=== PATIENT | male | born 1945 | race Caucasian/White ===

== ENCOUNTER → 2018-06-16 06:29 | Outpatient (CLI) | payer MEDICARE, OTHER, SELFPAY ==
--- NOTE | 2018-06-16 06:34 | ECHOD_ITS ---
Reason For Study: CAD/ASHD Procedure This was a 2D Doppler, Color Flow transthoracic echocardiogram. Exam performed in department. Left Ventricle Normal LV size. Left ventricular systolic function is normal. The estimated ejection fraction is 60 %. Transmitral diastolic flow velocities suggest mild (stage 1) diastolic dysfunction (reversed pattern). No regional wall motion abnormalities noted. Right Ventricle Normal RV size. Normal systolic function. Atria The left atrium is moderately enlarged. Normal right atrium. Mitral Valve Normal mitral valve. Mild (1+) eccentric mitral valve insufficiency. Tricuspid Valve Normal tricuspid valve. Mild to moderate (1-2+) tricuspid valve insufficiency. Pulmonary artery systolic pressure is 39 mmHg. Aortic Valve Mild focal aortic valve calcification. Mild (1+) eccentric aortic valve insufficiency. Pulmonic Valve Normal pulmonic valve. Great Vessels Normal aortic root. The pulmonary artery is normal size. Normal inferior vena cava. Pericardium/Pleural No pericardial effusion. MMode/2D Measurements & Calculations LVIDd: 5.3 cm IVSd: 1.1 cm LVOT diam: 2.1 cm LVIDs: 2.7 cm LVPWd: 1.1 cm LVOT area: 3.6 cm2 RVDd: 3.8 cm FS: 48.0 % Ao root diam: 2.7 cm LAV(MOD-bp): 69.7 ml EDV(MOD-sp4): 112.4 ml LAV(MOD-bp) Indexed: 34.9 ml/m2 ESV(MOD-sp4): 50.5 ml LAV(MOD-sp2): 54.1 ml EF(MOD-sp4): 55.0 % LAV(MOD-sp4): 80.2 ml SV(MOD-sp4): 61.9 ml LA A4 area: 24.6 cm2 RA A4 area: 15.2 cm2 Doppler Measurements & Calculations MV E max jeffrey: 84.0 cm/sec Lat Peak E' Jeffrey: 7.9 cm/sec Med Peak E' Jeffrey: 5.2 cm/sec MV A max jeffrey: 101.7 cm/sec E/E' lat: 10.6 E/E' med: 16.3 MV E/A: 0.83 Ao V2 max: 241.5 cm/sec AI max jeffrey: 445.9 cm/sec LV V1 max: 132.9 cm/sec Ao max P.3 mmHg AI max P.5 mmHg LV V1 max P.1 mmHg Ao V2 mean: 166.7 cm/sec AI dec slope: 305.6 cm/sec2 LV V1 mean P.3 mmHg Ao mean P.3 mmHg AI P1/2t: 427.3 msec LV V1 mean: 98.4 cm/sec Ao V2 VTI: 58.1 cm LV V1 VTI: 35.9 cm SERG(I,D): 2.2 cm2 SERG(V,D): 2.0 cm2 SV(LVOT): 129.9 ml PA V2 max: 95.7 cm/sec TR max jeffrey: 293.7 cm/sec TR max P.5 mmHg Interpretation Summary Normal LV size. Left ventricular systolic function is normal. The estimated ejection fraction is 60 %. Transmitral diastolic flow velocities suggest mild (stage 1) diastolic dysfunction (reversed pattern). Mild to moderate (1-2+) tricuspid valve insufficiency. Ordering Physician: David Kennedy Referring Physician: James Chiu Performed By: Erma Graves, PERRY, RVT
--- NOTE | 2018-06-16 06:34 | CDU_ITS ---
Reason For Study: CAROTID STENOSIS Rt. Velocities/BP Lt. Velocities/BP Prox CCA 48/9 cm/sec. Prox CCA 103/10 cm/sec. Mid CCA 56/8 cm/sec. Mid CCA 102/22 cm/sec. Dist CCA 45/7 cm/sec. Dist CCA 89/20 cm/sec. Artery is occluded. Prox ICA 117/31 cm/sec. Prox ECA 215/16 cm/sec. Mid ICA 138/35 cm/sec. Rt. Vert. 42/11 cm/sec. Dist ICA 99/19 cm/sec. Lt. ICA/CCA = 1.35. Prox ECA 192/14 cm/sec. Lt. Vert. 50/19 cm/sec. Right Extracranial There is homogeneous, smooth atherosclerotic plaque noted in the right common carotid artery. The right internal carotid artery is occluded. There is heterogeneous, irregular atherosclerotic plaque noted in the right external carotid artery. Antegrade flow is noted in the right vertebral artery. There is heterogeneous, irregular atherosclerotic plaque noted in the right bulb. Left Extracranial There is homogeneous, smooth atherosclerotic plaque noted in the left common carotid artery. There is heterogeneous, irregular atherosclerotic plaque noted in the left internal carotid artery. The left internal carotid artery is very tortuous. There is homogeneous, smooth atherosclerotic plaque noted in the left external carotid artery. Antegrade flow is noted in the left vertebral artery. There is heterogeneous, irregular atherosclerotic plaque noted in the left bulb. Procedure Carotid Duplex 45594. Exam performed in department. Interpretation Summary 1. right ICa is occluded. Moderate (50-69%) stenosis left extracranial internal carotid. Flow within the vertebral arteries is antegrade bilaterally. Ordering Physician: David Kennedy Referring Physician: ABHIJIT BALES Performed By: Fern Acharya, RDCS, RVT
--- NOTE | 2018-06-16 09:07 | STRESSREP ---
Stress Test Report Exercise myocardial perfusion stress test. 73-year-old man with a history of coronary artery disease. Medications metoprolol amlodipine. Stress protocol: Resting EKG demonstrates normal sinus rhythm with a rate of 62 bpm normal intervals and noted occasional premature ventricular complexes present. Resting blood pressure is 150/80 mmHg. The patient exercised according to the regular [place] protocol for total duration of 6 minutes. The maximum heart rate attained was 93 bpm which was 63% of maximum predicted heart rate the maximum workload was 7 metabolic equivalents. The patient unfortunately took his metoprolol the night before. At rest there were no ST or T-wave changes noted suggest abnormal flow reserve at peak exercise there were no ST or T-wave changes noted suggest ischemia. Occasional premature ventricular complexes were noted and one episode of ventricular triplets was noted. The resting blood pressure is 150/80 with a peak blood pressure 162/88 meters of mercury. Myocardial perfusion protocol. 11.5 mCi of technetium 99m sestamibi was injected at rest. The patient exercised according to regular [place] protocol for 6 minutes attaining 63% of maximum predicted heart rate and a workload of 7 metabolic equivalents. At peak exercise 33.6 mCi of technetium 99m sestamibi was injected stress images were obtained stress and rest images were reconstructed and compared in the short axis vertical long and horizontal long axis. Gated images were also obtained Perfusion SPECT analysis: Review of the stress images demonstrate normal uptake of tracer noted in the septum anterior wall and lateral wall. The basal inferior wall appears to have an area of mildly reduced perfusion which only minimally improves with rest. Ischemia in this area cannot be completely excluded however. The low heart rate attained may blunt detection of ischemia. Gated SPECT analysis: The gated ejection fraction is noted to be 62%. Conclusion: Exercise myocardial perfusion stress test with no evidence of overt ischemia. A small area of basal inferior ischemia can probably not be completely excluded. Suboptimal heart rate attained with testing. No angina noted. Preserved ejection fraction.
== END ==
PROVIDERS: Family Provider Internal Medicine Infectious Disease; PCP Internal Medicine Infectious Disease; Visit Provider Internal Medicine Cardiovascular Disease
DX: I25.10 Atherosclerotic heart disease of native coronary artery without angina pectoris (principal); I65.21 Occlusion and stenosis of right carotid artery
CPT/HCPCS: 78452; 93017; 93306; 93880; A9500; A4216

== ENCOUNTER → 2018-11-05 09:10 | Outpatient (CLI) | payer MEDICARE, OTHER, SELFPAY ==
[2018-05-26 15:13] VITALS: BMI 32.1
[2018-11-05 11:18] LABS: AST(SGOT) 17 U/L (15-37); Alanine Aminotransfer ALT/SGPT 21 U/L (16-61); Albumin, Serum 3.7 g/dL (3.2-5.0); Alkaline Phosphatase 93 U/L (45-117); Bilirubin, Direct 0.21 mg/dL (0.00-0.30); Cholesterol 114 mg/dL (200); Globulin 4.1 g/dL (2.2-4.2); High Density Lipoprotein 47 mg/dL; Protein, Total 7.8 g/dL (6.4-8.2); Triglycerides 94 mg/dL; Very Low Density Lipoprotein 19 mg/dL (5-40)
== END ==
PROVIDERS: Internal Medicine Cardiovascular Disease; Family Provider Internal Medicine Infectious Disease; PCP Internal Medicine Infectious Disease; Referring Provider Nurse Practitioner Family; Visit Provider Nurse Practitioner Family
DX: I25.10 Atherosclerotic heart disease of native coronary artery without angina pectoris (principal); E78.00 Pure hypercholesterolemia, unspecified
CPT/HCPCS: 80061; 80076

== ENCOUNTER → 2020-05-21 06:26 | Outpatient (CLI) | payer MEDICARE, OTHER, SELFPAY ==
[2020-05-08 12:33] VITALS: BMI 30.3
--- NOTE | 2020-05-21 06:31 | CDU_ITS ---
Reason For Study: TIA Rt. Velocities/BP Lt. Velocities/BP Prox CCA 48.7/5.8 cm/sec. Prox CCA 87.1/12.4 cm/sec. Mid CCA 48.7/5.8 cm/sec. Mid CCA 84.9/12.4 cm/sec. Dist CCA 53.1/3.6 cm/sec. Dist CCA 105.8/15.7 cm/sec. Prox ECA 195.0/11.1 cm/sec. Prox ICA 113.8/15.7 cm/sec. Rt. Vert. 39.9/11.3 cm/sec. Mid ICA 176.7/29.9 cm/sec. Dist ICA 121.10/24.3 cm/sec. Lt. ICA/CCA = 2.1. Prox ECA 246.8/8.5 cm/sec. Lt. Vert. 66.7/13.9 cm/sec. Right Extracranial There is homogeneous, smooth atherosclerotic plaque noted in the right common carotid artery. The right internal carotid artery is occluded. There is heterogeneous, irregular atherosclerotic plaque noted in the right external carotid artery. Antegrade flow is noted in the right vertebral artery. Left Extracranial There is heterogeneous, irregular atherosclerotic plaque noted in the left common carotid artery. There is heterogeneous, irregular atherosclerotic plaque noted in the left internal carotid artery. The left internal carotid artery is very tortuous. There is homogeneous, smooth atherosclerotic plaque noted in the left external carotid artery. Antegrade flow is noted in the left vertebral artery. Procedure Carotid Duplex 31783. The exam was diagnostic. Exam performed in department. Interpretation Summary Galloping right carotid bulb with extensive plaque and no flow identified within the right internal carotid artery <50% stenosis right external carotid but close to this range Tortuous left internal carotid with mild irregular plaque. 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
--- NOTE | 2020-05-21 11:32 | STRESSREP ---
Stress Test Report Pharmacologic myocardial perfusion stress test. 75-year-old male with a history of diabetes mellitus coronary artery disease totally occluded right coronary artery. Stress protocol: Resting KG demonstrates normal sinus rhythm with a rate of 74 bpm normal intervals are noted resting blood pressure is 100 for 78/70 mmHg. 0.4 mg of regadenoson was infused per usual protocol followed by rapid intravenous saline flush injection continuous EKG monitoring was performed. Patient maintained sinus rhythm throughout the recording with occasional premature ventricular complexes noted. At rest there were no ST or T wave changes noted to suggest abnormal flow reserve at peak infusion nonspecific ST-T wave changes were noted with no meet the criteria for ischemia. No clinical angina was noted. The resting blood pressure was 152/62 with a final blood pressure 140/52. Myocardial perfusion protocol. 11.8 mCi of technetium 99m sestamibi was injected at rest. 0.4 mg of regadenoson was infused per usual protocol. At peak infusion 34.0 mCi of technetium 99m sestamibi was injected stress images were obtained stress and rest images were reconstructed and compared in the short axis vertical long horizontal long axis. Gated images were also obtained per Perfusion SPECT analysis: Review of the stress images demonstrate normal uptake of tracer noted in all areas of the myocardium. There is probably mildly reduced perfusion noted in the inferior wall. However this does not appear to be significant in comparison to the resting images. No obvious significant ischemia is noted. Gated SPECT analysis: The gated ejection fraction is 72%. Conclusion: Pharmacologic myocardial perfusion stress test with probable normal images. Preserved ejection fraction.
== END ==
PROVIDERS: PCP Internal Medicine Infectious Disease; Referring Provider Internal Medicine Cardiovascular Disease; Visit Provider Internal Medicine Cardiovascular Disease
DX: I65.22 Occlusion and stenosis of left carotid artery (principal); I25.2 Old myocardial infarction
CPT/HCPCS: 78452; 93017; 93880; A9500; A4216; J2785

== ENCOUNTER → 2021-05-14 12:44 | Outpatient (CLI) | payer MEDICARE, OTHER, SELFPAY ==
[2021-05-07 12:57] VITALS: BMI 30.4
--- NOTE | 2021-05-14 12:53 | CDU_ITS ---
Rt. Velocities/BP Lt. Velocities/BP Prox CCA 41.2 cm/sec. Prox CCA 121.6/15.7 cm/sec. Mid CCA 38.6 cm/sec. Mid CCA 108.9/15.7 cm/sec. Dist CCA 34.6 cm/sec. Dist CCA 103.4/19.4 cm/sec. Prox ECA 170 cm/sec. Prox ICA 89.7/22.3 cm/sec. Rt. Vert. 49.9/13.0 cm/sec. Mid ICA 218.1/37.7 cm/sec. Dist ICA 96.1/15.7 cm/sec. Lt. ICA/CCA = 2.0. Prox ECA 188.1/9.3 cm/sec. Lt. Vert. 49.7/11.9 cm/sec. Right Extracranial There is heterogeneous, irregular atherosclerotic plaque noted in the right common carotid artery. The right internal carotid artery is occluded. There is heterogeneous, irregular atherosclerotic plaque noted in the right external carotid artery. Antegrade flow is noted in the right vertebral artery. Left Extracranial There is heterogeneous, irregular atherosclerotic plaque noted in the left common carotid artery. There is heterogeneous, irregular atherosclerotic plaque noted in the left internal carotid artery. The left internal carotid artery is very tortuous. There is heterogeneous, irregular atherosclerotic plaque noted in the left external carotid artery. Antegrade flow is noted in the left vertebral artery. Procedure Carotid Duplex [id number]. This is a Carotid Duplex examination using B-mode, color flow and specral Doppler. The exam was diagnostic. Exam performed in department. VL/Carotid Duplex Ultrasound Interpretation Summary Galloping right carotid bulb with extensive plaque and no flow identified withi n the right internal carotid artery <50% stenosis right external carotid Tortuous left internal carotid with irregular plaque. 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 This has not changed the category of stenosis Ordering Physician: Suzanne Jay Performed By: Blair Bledsoe RVT and Student
== END ==
PROVIDERS: Referring Provider Physician Assistant Medical; Visit Provider Physician Assistant Medical
DX: I65.21 Occlusion and stenosis of right carotid artery (principal)
CPT/HCPCS: 93880

== ENCOUNTER → 2022-05-27 | Outpatient (CLI) | payer MEDICARE, OTHER, SELFPAY ==
--- NOTE | 2022-05-27 09:00 | CDU_ITS ---
Reason For Study: carotid stenosis Rt. Velocities/BP Lt. Velocities/BP Prox CCA 48.6 cm/sec. Prox CCA 94.9/15.1 cm/sec. Mid CCA 35.6 cm/sec. Mid CCA 74.0/18.8 cm/sec. Dist CCA 33.0/4.3 cm/sec. Dist CCA 86.3/18.8 cm/sec. Prox ECA 291.4/16.9 cm/sec. Prox ICA 136.7/31.4 cm/sec. Rt. Vert. 43.4/12.6 cm/sec. Mid ICA 196.6/51.3 cm/sec. Dist ICA 141.2/31.4 cm/sec. Lt. ICA/CCA = 2.7. Prox ECA 189.4/9.4 cm/sec. Lt. Vert. 66.7/17.6 cm/sec. Right Extracranial There is homogeneous, smooth atherosclerotic plaque noted in the right common carotid artery. The right internal carotid artery is occluded. There is heterogeneous, irregular atherosclerotic plaque noted in the right external carotid artery. Antegrade flow is noted in the right vertebral artery. Left Extracranial There is heterogeneous, smooth atherosclerotic plaque noted in the left common carotid artery. There is heterogeneous, irregular atherosclerotic plaque noted in the left internal carotid artery. The left internal carotid artery is very tortuous. There is heterogeneous, irregular atherosclerotic plaque noted in the left external carotid artery. Antegrade flow is noted in the left vertebral artery. Procedure Carotid Duplex [id number]. This is a Carotid Duplex examination using B-mode, color flow and specral Doppler. The exam was diagnostic. Exam performed in department. VL/Carotid Duplex Ultrasound Interpretation Summary Galloping right carotid bulb with extensive plaque and no flow identified withi n the right internal carotid artery <50% stenosis right external carotid Tortuous left internal carotid with irregular plaque. 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
== END | disposition home or self-care (01) ==
LOC: CVS 08:55
PROVIDERS: PCP Internal Medicine Infectious Disease; Referring Provider Internal Medicine Cardiovascular Disease; Visit Provider Internal Medicine Cardiovascular Disease
DX: I65.23 Occlusion and stenosis of bilateral carotid arteries (principal)
CPT/HCPCS: 93880

== ENCOUNTER → 2022-06-11 | Outpatient (CLI) | payer MEDICARE, OTHER, SELFPAY ==
--- NOTE | 2022-06-11 06:49 | ECHOD_ITS ---
Reason For Study: CAD Procedure This was a 2D Doppler, Color Flow transthoracic echocardiogram. Exam performed in department. Left Ventricle Normal LV size. Left ventricular systolic function is normal. The estimated ejection fraction is 60 %. Stage 1 diastolic dysfunction. No regional wall motion abnormalities noted. Right Ventricle Normal RV size. Normal systolic function. Atria Normal left atrium. Normal right atrium. Mitral Valve Normal mitral valve. Tricuspid Valve Normal tricuspid valve. Mild tricuspid valve insufficiency. Pulmonary artery systolic pressure is 35 mmHg. Aortic Valve Trisinus/trileaflet aortic valve. Moderate focal aortic valve calcification. Peak aortic valve gradient 18 mmHg. Mean aortic valve gradient 9 mmHg. Mild aortic stenosis. Mild (1+) aortic valve insufficiency. Pulmonic Valve Normal pulmonic valve. MMode/2D Measurements & Calculations LVIDd: 4.9 cm IVSd: 0.91 cm LVOT diam: 2.0 cm LVIDs: 3.3 cm LVPWd: 1.1 cm LVOT area: 3.3 cm2 RVDd: 3.6 cm FS: 32.4 % Ao root diam: 3.1 cm LAV(MOD-bp): 53.0 ml LVAd ap4: 31.9 cm2 LAV(MOD-bp) Indexed: 27.8 ml/m2 LVLd ap4: 8.3 cm LAV(MOD-sp2): 73.8 ml EDV(MOD-sp4): 101.6 ml LAV(MOD-sp4): 38.1 ml EDV(sp4-el): 103.8 ml LVAs ap4: 18.8 cm2 LVLs ap4: 7.3 cm ESV(MOD-sp4): 42.3 ml ESV(sp4-el): 41.0 ml EF(MOD-sp4): 58.4 % EF(sp4-el): 60.5 % SV(MOD-sp4): 59.4 ml SV(MOD-sp2): 50.5 ml LVAd ap2: 29.7 cm2 LVLd ap2: 8.4 cm EDV(MOD-sp2): 92.6 ml EDV(sp2-el): 89.7 ml LVAs ap2: 18.5 cm2 LVLs ap2: 7.4 cm ESV(MOD-sp2): 42.1 ml ESV(sp2-el): 38.9 ml EF(MOD-sp2): 54.5 % SV(sp4-el): 62.8 ml LA A4 area: 17.1 cm2 LA dimension(2D): 3.8 cm RA A4 area: 12.0 cm2 Time Measurements MV dec time: 0.29 sec Doppler Measurements & Calculations MV E max jeffrey: 60.5 cm/sec Lat Peak E' Jeffrey: 7.6 cm/sec Med Peak E' Jeffrey: 5.2 cm/sec MV A max jeffrey: 92.0 cm/sec E/E' lat: 7.9 E/E' med: 11.6 MV E/A: 0.66 MV dec slope: 205.1 cm/sec2 Ao V2 max: 214.4 cm/sec AI max jeffrey: 487.3 cm/sec Ao max P.4 mmHg AI max P.1 mmHg Ao V2 mean: 144.9 cm/sec AI dec slope: 260.6 cm/sec2 Ao mean P.6 mmHg AI P1/2t: 547.7 msec Ao V2 VTI: 46.3 cm SERG(V,D): 1.5 cm2 LV V1 max: 100.3 cm/sec PA V2 max: 82.4 cm/sec TR max jeffrey: 282.7 cm/sec LV V1 max P.0 mmHg TR max P.0 mmHg ECHO/Echo Complete Interpretation Summary Normal LV size. Left ventricular systolic function is normal. The estimated ejection fraction is 60 %. Stage 1 diastolic dysfunction. Moderate focal aortic valve calcification. Mild aortic stenosis. Mild (1+) aortic valve insufficiency. Pulmonary artery systolic pressure is 35 mmHg. Ordering Physician: David Kennedy Referring Physician: James Chiu Performed By: Marivel Keyes RDCS
--- NOTE | 2022-06-11 11:22 | STRESSREP ---
Stress Test Report Pharmacologic myocardial perfusion stress test. 77-year-old man with a history of coronary artery disease TIA arteries. Stress protocol: Resting EKG demonstrates sinus rhythm with a rate of 61 bpm normal intervals resting blood pressure is 198/70 mmHg. 0.4 mg of regadenoson was infused per usual protocol followed by rapid intravenous saline flush injection continuous EKG monitoring was performed. The maximum heart rate attained was 85 bpm which was 59% of max impacted heart rate the maximum workload was 1 metabolic equivalent. At rest there were no ST or T wave changes noted to suggest abnormal flow reserve and at peak infusion nonspecific ST changes were noted with did not meet the criteria for ischemia. No clinical angina was noted the final blood pressure was 170/70 mmHg. Myocardial perfusion protocol. 10.8 mCi of technetium 99m sestamibi was injected at rest. 0.4 mg of regadenoson was infused per usual protocol. At peak infusion 32.2 mCi of technetium 99m sestamibi was injected stress images were obtained stress and rest images were reconstructed and compared in the short axis vertical long and horizontal long axis. Gated images were also obtained. Perfusion SPECT analysis: Review of the stress images demonstrate normal uptake of tracer in all areas of the myocardium. The resting images similarly demonstrate normal uptake of tracer noted in all areas of the myocardium. No reversibility is noted suggest ischemia. Gated SPECT analysis: The gated ejection fraction is 67%. Conclusion: Normal pharmacologic myocardial perfusion stress test. Preserved ejection fraction.
== END | disposition home or self-care (01) ==
LOC: CVS 06:40
PROVIDERS: PCP Internal Medicine Infectious Disease; Visit Provider Internal Medicine Cardiovascular Disease
DX: I25.10 Atherosclerotic heart disease of native coronary artery without angina pectoris (principal)
CPT/HCPCS: 78452; 93017; 93306; A9500; A4216; J2785

== ENCOUNTER → 2023-05-13 | Outpatient (CLI) | payer MEDICARE, OTHER, SELFPAY | END | disposition home or self-care (01) | PROVIDERS: PCP Internal Medicine Infectious Disease; Referring Provider Physician Assistant Medical; Visit Provider Physician Assistant Medical | DX: I49.49 Other premature depolarization (principal) | CPT/HCPCS: 93225; 93226 ==

== ENCOUNTER → 2025-07-19 | Outpatient (CLI) | payer MEDICARE, OTHER, SELFPAY ==
--- NOTE | 2025-07-19 08:54 | ECHOD_ITS ---
Reason For Study Reason For Study: Murmur Procedure This was a 2D Doppler, Color Flow transthoracic echocardiogram. Exam performed in department. Left Ventricle Normal LV size. The left ventricular ejection fraction is 60 %. Stage 1 diastolic dysfunction. No regional wall motion abnormalities noted. Right Ventricle Normal RV size. Normal systolic function. Atria Normal left atrium. Normal right atrium. Mitral Valve Normal mitral valve. Mild (1+) mitral valve insufficiency. Tricuspid Valve Normal tricuspid valve. Mild tricuspid valve insufficiency. Pulmonary artery systolic pressure is 45 mmHg. Aortic Valve Trisinus/trileaflet aortic valve. Mild focal aortic valve calcification. Peak aortic valve gradient 20 mmHg. Mean aortic valve gradient 11 mmHg. Mild (1+) aortic valve insufficiency. Pulmonic Valve Normal pulmonic valve. Great Vessels Normal aortic root. The pulmonary artery is normal size. Inferior vena cava collapse with respiration. Pericardium/Pleural No pericardial effusion. MMode/2D Measurements & Calculations LVIDd: 4.9 cm IVSd: 1.2 cm LVOT diam: 2.0 cm LVIDs: 2.8 cm LVPWd: 1.1 cm LVOT area: 3.1 cm2 RVDd: 4.0 cm FS: 43.7 % Ao root diam: 3.4 cm LAV(MOD-bp): 95.8 ml LVAd ap4: 34.7 cm2 LAV(MOD-bp) Indexed: 52.1 ml/m2 LVLd ap4: 8.2 cm LAV(MOD-sp2): 81.0 ml EDV(MOD-sp4): 119.4 ml LAV(MOD-sp4): 113.0 ml EDV(sp4-el): 125.6 ml LVAs ap4: 20.8 cm2 LVLs ap4: 7.2 cm ESV(MOD-sp4): 53.2 ml ESV(sp4-el): 50.9 ml EF(MOD-sp4): 55.5 % EF(sp4-el): 59.4 % SV(MOD-sp4): 66.2 ml SV(sp4-el): 74.6 ml LA A4 area: 30.0 cm2 SI(MOD-sp4): 36.0 ml/m2 RA A4 area: 20.7 cm2 TAPSE: 2.3 cm Time Measurements MV dec time: 0.19 sec Doppler Measurements & Calculations MV E max jeffrey: 79.8 cm/sec Lat Peak E' Jeffrey: 6.8 cm/sec Med Peak E' Jeffrey: 9.1 cm/sec MV A max jeffrey: 87.1 cm/sec E/E' lat: 11.8 E/E' med: 8.7 MV E/A: 0.92 MV V2 max: 115.5 cm/sec MV P1/2t max jeffrey: 100.6 cm/sec Ao V2 max: 224.5 cm/sec MV max P.3 mmHg MV P1/2t: 75.6 msec Ao max P.2 mmHg MV V2 mean: 55.5 cm/sec Ao V2 mean: 153.8 cm/sec MV mean P.6 mmHg MV dec slope: 389.7 cm/sec2 Ao mean P.9 mmHg MV V2 VTI: 40.5 cm MVA(P1/2t): 2.9 cm2 Ao V2 VTI: 65.5 cm AV (velocity ratio): 0.45 MVA(VTI): 2.3 cm2 SERG(I,D): 1.4 cm2 SERG(V,D): 1.4 cm2 AI max jeffrey: 482.4 cm/sec LV V1 max: 102.3 cm/sec SV(LVOT): 91.9 ml AI max P.2 mmHg LV V1 max P.2 mmHg LV V1 mean P.4 mmHg AI dec slope: 299.9 cm/sec2 LV V1 mean: 74.1 cm/sec AI P1/2t: 471.1 msec LV V1 VTI: 29.3 cm PA V2 max: 84.0 cm/sec TR max jeffrey: 320.5 cm/sec TR max P.1 mmHg ECHO/Echo Complete Interpretation Summary Normal LV size. The left ventricular ejection fraction is 60 %. Mild focal aortic valve calcification. Mild (1+) aortic valve insufficiency. Stage 1 diastolic dysfunction. Pulmonary artery systolic pressure is 45 mmHg. Ordering Physician: David Kennedy Referring Physician: David Kennedy Performed By: Xavier Womack [facility]
--- OUTSIDE RECORDS SUMMARY | 2025-07-19 09:34 | XMS RPT_ITS | CCD ---
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 David Kennedy Attending Provider [phone] Dr. Abhijit Bales Primary Care Provider [phone] Abhijit Bales Referring Provider [phone] Jacques Parmar Attending Provider Dr. David Kennedy Other Provider Dr. Abhijit Bales Primary Care Provider [phone] Abhijit Bales Referring Provider [phone] Misty JACOBS, ARLENE [place] Attending Provider Dr. Abhijit Bales MD Primary Care Provider [phone] Dr. Abhijit Bales MD Referring Provider Dr. David Kennedy MD Attending Provider [phone] DAVID KENNEDY MD Primary Care Unavailable DAVID KENNEDY MD Attending Unavailable DAVID KENNEDY MD Admitting Unavailable ABHIJIT BALES MD Admitting Unavailable ABHIJIT BALES MD Primary Care Unavailable ABHIJIT BALES MD Consulting Unavailable ABHIJIT BALES MD Attending Unavailable PROVIDER, UNKNOWN Consulting Unavailable PROVIDER, UNKNOWN Consulting Unavailable PROVIDER, UNKNOWN Consulting Unavailable AVIS LOGAN MD Admitting Unava ilAVIS Cooper MD Primary Care Unava ilAVIS Cooper MD Attending Unava ilABHIJIT Allen MD Admitting Unavailable AVIS LOGAN MD Referring Unava ilABHIJIT Allen MD Primary Care Unavailable ABHIJIT BALES MD Attending Unavailable ABHIJIT BALES MD Primary Care Unavailable ABHIJIT BALES MD Attending Unavailable ABHIJIT BALES MD Admitting Unavailable AVIS LOGAN MD Admitting UnaAVIS Lanier MD Primary Care UnaAVIS Lanier MD Attending Unava ilable David Kennedy Attending Unavailable Abhijit Bales Primary Care Unavailable Abhijit Bales Referring Unavailable David Kennedy Attending Unavailable David Kennedy Referring Unavailable bAhijit Bales Primary Care Unavailable Medications Current Medications Medication Drug Class(es) Dates Sig (Normalized) Sig (Original) aspirin 81 mg delayed release oral tablet (3 sources) Platelet Aggregation Inhibitor, Nonsteroidal Anti-inflammatory Drug Start: 05-26-2018 take 1 tablet by mouth once daily Aspirin (Adult Aspirin Regimen) 81 mg tablet,delayed release (DR/EC) Active 81 mg PO daily May 26, 2018 12:00am Carbidopa / Levodopa (3 sources) Aromatic Amino Acid Decarboxylation Inhibitor, Aromatic Amino Acid Start: 06-27-2025 Carbidopa-Levodo pa 25-100 mg tablet extended release Active 1 {tbl} PO THREE TIMES A DAY June 27, 2025 12:00am Start: 05-06-2023 End: 06-27-2025 Carbidopa-Levodopa 10-100 mg tablet Discontinued 1 {tbl} PO THREE TIMES A DAY May 06, 2023 12:00am June 27, 2025 1:44pm Start: 05-06-2023 take 1 tablet by rubio three times daily Carbidopa-Levodopa Active 1 TABLET PO THREE TIMES A DAY May 06, 2023 12:00am dapagliflozin 10 mg oral tablet (2 sources) Sodium-Glucose Cotransporter 2 Inhibitor Start: 05-06-2023 take 1 tablet by mouth once daily Dapagliflozin Propanediol (Farxiga) 10 mg tablet Active 10 mg PO DAILY May 06, 2023 12:00am hydrALAZINE hydrochloride 50 mg oral tablet (1 source) Arteriolar Vasodilator Start: 06-27-2025 Hydralazine 50 mg tablet Active 75 mg PO THREE TIMES A DAY June 27, 2025 12:00am losartan potassium 100 mg oral tablet (6 sources) Angiotensin 2 Receptor Abi Start: 05-05-2019 take 1 tablet by mouth once daily Losartan 100 mg tablet Active 100 mg PO DAILY 90 90 0 May 05, 2019 12:00am Start: 05-26-2018 End: 05-05-2019 take 1 tablet by mouth once daily Losartan 50 mg tablet Discontinued 50 mg PO daily May 26, 2018 12:00am May 05, 2019 3:32pm 24 hr metoprolol succinate 50 mg extended release oral tablet (4 sources) beta-Adrenergic Abi Start: 06-23-2024 Metopr olol Succinate 50 mg tablet extended release 24 hr Active 75 mg PO daily June 23, 2024 11:03am Start: 05-26-2018 End: 06-23-2024 take 1 tablet by mouth once daily Metoprolol Succinate 50 mg tablet extended release 24 hr Discontinued 50 mg PO daily May 26, 2018 12:00am June 23, 2024 11:04am rosuvastatin calcium 10 mg oral tablet (2 sources) HMG-CoA Reductase Inhibitor Start: 05-06-2023 take 1 tablet by mouth once daily Rosuvastatin 10 mg tablet Active 10 mg PO DAILY May 06, 2023 12:00am Completed/Discontinued Medications Medication Drug Class(es) Dates Sig (Normalized) Sig (Original) amLODIPine 5 mg oral tablet (3 sources) Dihydropyridine Calcium Channel Abi Start: 05-26-2018 End: 05-06-2023 take 1 tablet by mouth once daily Amlodipine 5 mg tablet Discontinued 5 mg PO daily May 26, 2018 12:00am May 06, 2023 11:00am cholecalciferol 0.05 mg oral capsule (2 sources) Vitamin D Start: 05-06-2023 End: 06-27-2025 take 1 capsule by mouth once daily Cholecalciferol (Vitamin D3) 50 mcg (2,000 unit) capsule Discontinued 50 ug PO DAILY May 06, 2023 12:00am June 27, 2025 1:44pm donepezil hydrochloride 5 mg oral tablet (2 sources) Start: 05-06-2023 End: 06-27-2025 Donepezil 5 mg tablet Discontinued NMA PO May 06, 2023 12:00am June 27, 2025 1:44pm Start: 05-06-2023 Donepezil Acti ve EACH PO May 06, 2023 12:00am glimepiride 1 mg oral tablet (3 sources) Sulfonylurea Start: 05-26-2018 End: 05-05-2019 take 1 tablet by mouth once daily in the morning Glimepiride 1 mg tablet Discontinued 1 mg PO EVERY MORNING May 26, 2018 12:00am May 05, 2019 3:32pm mecobalamin (2 sources) Start: 05-06-2023 End: 06-27-2025 Mecobalamin (Vitamin B12) 2,500 mcg tablet,chewable Discontinued ug PO DAILY May 06, 2023 12:00am June 27, 2025 1:44pm Start: 05-06-2023 take 1 ug by mouth once daily Mecobalamin (Vitamin B12) Active MCG PO DAILY May 06, 2023 12:00am osmotic 24 hr metFORMIN hydrochloride 1000 mg extended release oral tablet (5 sources) Biguanide Start: 05-26-2018 End: 06-23-2024 take 1 tablet by mouth once daily Metformin 1,000 mg tablet extended release 24hr Discontinued 500 mg PO daily May 06, 2023 10:59am June 23, 2024 11:03am simvastatin 40 mg oral tablet (3 sources) HMG-CoA Reductase Inhibitor Start: 05-26-2018 End: 05-06-2023 take 1 tablet by mouth once daily in the evening Simvastatin 40 mg tablet Discontinued 40 mg PO EVERY EVENING May 26, 2018 12:00am May 06, 2023 11:00am tamsulosin hydrochloride 0.4 mg oral capsule (2 sources) alpha-Adrenergic Abi Start: 05-06-2023 End: 06-23-2024 take 2 capsules by mouth once daily at bedtime Tamsulosin 0.4 mg capsule Discontinued 0.4 mg PO AT BEDTIME May 06, 2023 12:00am June 23, 2024 11:04am 2 capsules daily Problems Problem Classification Problem Date Documented Da te Episodic/Chronic Cardiac dysrhythmias (3 sources) Ectopic beats; Translations: [Other premature depolarization] 05-06-2023 Chronic Chronic kidney disease (1 source) Chronic kidney disease; Translations: [Chronic kidney disease, stage 3 unspecified] Onset: 12-07-2024 Coronary atherosclerosis and other heart disease (8 sources) Old inferior myocardial infarction; Translations: [Old myocardial infarction] Chronic Comment on above: 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, 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 [facility] 2000 Diabetes mellitus without complication (1 source) Type 2 diabetes mellitus without complications; Translations: [Type 2 diabetes mellitus without complications] Onset: 09-14-2024 Chronic Disorders of lipid metabolism (5 sources) Hyperlipidemia; Translations: [Hyperlipidemia, unspecified] Chronic Essential hypertension (5 sources) Essential hypertension; Translations: [Essential (primary) hypertension] Chronic Heart valve disorders (4 sources) Tricuspid incompetence, non-rheumatic ; Translations: [Nonrheumatic tricuspid (valve) insufficiency] Onset: 07-17-2025 05-05-2020 Chronic Malaise and fatigue (3 sources) Fatigue; Translations: [Other fatigue] 05-06-2022 Episodic Occlusion or stenosis of precerebral arteries (5 sources) Bilateral stenosis of carotid arteries; Translations: [Occlusion and stenosis of bilateral carotid arteries] Chronic Comment on above: Galloping right bojorquez tid bulb with extensive plaque and no flow identified within the right internal carotid artery, Tortuous left internal carotid with irregular plaque.50-69% stenosis left internal carotid 05/14/2021 Pulmonary heart disease (3 sources) Pulmonary arterial hypertension; Translations: [Secondary pulmonary arterial hypertension] 05-05-2022 Chronic Residual codes; unclassified (1 source) Hypersomnia, unspecified; Translations: [Hypersomnia, unspecified] Onset: 03-15-2025 Chronic Transient cerebral ischemia (3 sources) Cerebral ischemia; Translations: [Transient cerebral ischemic attack, unspecified] 05-26-2018 Chronic Unclassified (1 source) Parkinson's disease; Translations: [Parkinson's disease] 06-27-2025 Chronic Results Test Name Value Interpretation Reference Range [facility] Cardiology Visit Reporton Cardiology Visit Report [facility]. [address] [place] [address] OFFICE VISIT Date of Service: 06/27/25 MR#: [id number] Acct: [id number] Name: BENITO RODRIGUES Rep #: [id number] : 1945 Provider: Dr. David Kennedy MD Age/Sex: 80/M Location: [facility] [place] Status: Signed HPI HPI History of Present Illness Details: BENITO RODRIGUES, is a 80 M who presents to the office today for a cardiovascular outpatient follow- up. He has a history of coronary artery disease, hypertension, hyperlipidemia, diabetes mellitus, and previous TIA with a totally occluded right internal carotid artery. His last catheterization had demonstrated a totally occluded right coronary artery with [id number] collaterals. He was recently diagnosed with parkinsons. From a cardiac standpoint, patient is doing well. He does not have any chest discomfort/heaviness/ tightness. He does not have any worsening symptoms of shortness of breath. He denies any PND. He does not have any orthopnea. He does not have any symptoms of congestive heart failure. He does not have any palpitations that he is aware of. He does occasionally have positional lightheadedness or dizziness. He does not have any near-syncope or syncope. He does not have any lower extremity edema. He does not have any symptoms of claudication. 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 Accompanied by: Significant Other Is patient in pain?: No Allergies No Known Allergies Allergy (Verified 06/27/25 13:42) Medications ???Medication ???Instructions ???Recorded ???Confirmed ???Type aspirin 81 mg tablet,delayed 81 mg PO QDAY 05/26/18 06/27/25 Hi story release (Adult Aspirin Regimen) losartan 100 mg tablet 100 mg PO DAILY 90 days #90 tabs 0 05/05/19 06/27/25 History dapagliflozin propanediol 10 mg 10 mg PO DAILY 05/06/23 06/27/25 H istory tablet (Farxiga) rosuvastatin 10 mg tablet 10 mg PO DAILY 05/06/23 06/27/25 H istory metoprolol succinate 50 mg 75 mg PO QDAY 06/23/24 06/27/25 Hi story tablet,extended release 24 hr carbidopa ER 25 mg-levodopa 100 mg 1 tab PO TID 06/27/25 06/27/25 H istory tablet,extended release hydralazine 50 mg tablet 75 mg PO TID 06/27/25 06/27/25 His tory Have you fallen in the past year?: No PFSH Medical History Parkinson disease Bilateral carotid artery stenosis 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 Type 2 diabetes mellitus Essential (primary) hypertension Barretts esophagus TIA (transient ischemic attack) Atherosclerosis of coronary artery of red devil heart without angina pectoris Hyperlipidemia Surgical History History of repair of hiatal hernia Previous back surgery History of left heart catheterization (03/2001) Family History Father CAD (coronary artery disease) Brother CAD (coronary artery disease) CABG Brother CAD (coronary artery disease) CABG Brother CAD (coronary artery disease) Coronary Stent Sister Cancer Social History Smoking Status: Former smoker quit date: 11/30/10 pack-years: 50 ROS Const Const: Positive for daytime sleepiness; Negative for fatigue, weakness, headache(s) or difficulty sleeping ENT ENT: Positive for balance problems; Negative for headache(s), dizziness or Nosebleed/epistaxis Cardio Chest Pain: No Palpitations: No Edema: None Resp Respiratory: Positive for SOB with activity; Negative for SOB at rest, SOB orthopnea SOB lying down or Cough GI GI: Negative nausea, vomiting or heartburn Musc Musc: Positive for balance problems Neuro Neuro: Positive for near syncope; Negative for dizziness, lightheadedness, headache(s) or weakness Endo Endo: Negative for fatigue Cardiology Exam Const Appearance: cooperative, healthy appearing, comfortable, no acute distress and well developed Orientation: alert, awake and oriented x3 Head Head: normal to inspection Ears: hearing grossly normal bilaterally Nose: external nose normal Face and Sinus: face symmetric Mouth: oral mucosae normal, lip normal and moist mucous membranes Eyes General: appearance normal, both eyes and all related structures Eyelids: eyelids normal Conjunctivae: conjunctivae normal Pupils: PERRL EOM: EOM intact bilaterally Neck Neck: normal visual inspection and trachea mi (more content not included)... Normal [facility] PTH, INTACT [CCL]on 04-13-20 25 PTH, Intact 92 pg/mL High [facility] Comment on above: Result Comment: [facility] [address] [place] [address] Romeo Ca III, M.D. [id number] Performed By: #### 2 15133 #### [facility],[address] [place] [address] 83812 BMP with eGFRon 04-12-2025 AGE 79 years Normal [facility] Comment on above: Performed By: #### 2 70441 #### [facility],[address] [place] [address] 44459 Anion gap [Moles/Vol] 8 mmol/L Low 10 - 20 [facility] Comment on above: Performed By: #### 2 33886 #### [facility],[address] [place] [address] 84692 BMP with eGFR Normal [facility] Comment on above: Result Comment: BASI C METABOLIC PANEL Performed By: #### 2 74940 #### [facility],[address] [place] [address] 95022 Calcium [Mass/Vol] 8.5 mg/dL Normal 8.5 - 10.1 [facility] Comment on above: Performed By: #### 2 38290 #### [facility],[address] [place] [address] 76632 Chloride [Moles/Vol] 109 mmol/L High 98 - 107 [facility] Comment on above: Performed By: #### 2 61308 #### [facility],[address] [place] [address] 65556 CO2 [Moles/Vol] 27.8 mmol/L Normal 21.0 - 32.0 [facility] Comment on above: Performed By: #### 2 54008 #### [facility],[address] [place] [address] 24275 Creatinine [Mass/Vol] 2.66 mg/dL High 0.70 - 1.30 [facility] Comment on above: Performed By: #### 2 15197 #### [facility],[address] [place] [address] 08036 eGFR 23 ML/MINUTE Low 60 - 999 [facility] Comment on above: Performed By: #### 2 81455 #### [facility],[address] [place] [address] 06640 eGFR(AA) 28 ML/MINUTE Low 60 - 999 [facility] Comment on above: Result Comment: ACCO RDING TO THE NATIONAL KIDNEY DISEASE EDUCATION PROGRAM(NKDE), A NORMAL eGFR IS A VALUE GREATER THAN OR EQUAL TO 60 ML/MIN/1.73 SQ METERS. CHRONIC KIDNEY DISEASE: <60mL/MIN/1.73 SQ METERS KIDNEY FAILURE: <15mL/MIN/1.73 SQ METERS THIS TEST SHOULD ONLY BE USED FOR PATIENTS 18 YEARS OF AGE AND OLDER. Performed By: #### 2 80656 #### [facility],[address] [place] [address] 52976 Glucose [Mass/Vol] 172 mg/dL High 74 - 106 [facility] Comment on above: Performed By: #### 2 53690 #### [facility],[address] [place] [address] 37226 Potassium [Moles/Vol] 4.0 mmol/L Normal 3.5 - 5.1 [facility] Comment on above: Performed By: #### 2 14132 #### [facility],[address] [place] [address] 85145 Sodium [Moles/Vol] 141 mmol/L Normal 136 - 145 [facility] Comment on above: Performed By: #### 2 81781 #### [facility],[address] [place] [address] 60498 Urea nitrogen [Mass/Vol] 50 mg/dL High 7 - 18 [facility] Comment on above: Performed By: #### 2 51918 #### [facility],[address] [place] [address] 05023 CBC + DIFFon 04-12-2025 Baso # 0.01 x10EE3/UL Normal 0.00 - 0.10 [facility] Comment on above: Performed By: #### 2 94586 #### [facility],[address] [place] [address] Basophils/100 WBC (Bld) 0.2 % Normal 0.0 - 2.0 [facility] Comment on above: Performed By: #### 2 28855 #### [facility],[address] [place] [address] CBC + DIFF Normal [facility] Comment on above: Result Comment: CBC- COMPLETE BLOOD COUNT Performed By: #### 2 62435 #### [place] [address] EO # 0.19 x10EE3/UL Normal 0.00 - 0.50 [facility] Comment on above: Performed By: #### 2 61767 #### [facility],[address] [place] [address] Eosinophils/100 WBC (Bld) 2.6 % Normal 0.0 - 7.0 [facility] Comment on above: Performed By: #### 2 42670 #### [facility],[address] [place] [address] Erythrocyte distribution width (RBC) [Ratio] 13.3 % Normal 12.0 - 15.6 [facility] Comment on above: Performed By: #### 2 57008 #### [facility],[address] [place] [address] Hematocrit (Bld) [Volume fraction] 33.7 % Low 40.0 - 52.0 [facility] Comment on above: Performed By: #### 2 65099 #### [facility],[address] [place] [address] Hemoglobin (Bld) [Mass/Vol] 11.4 g/dL Low 13.0 - 17.5 [facility] Comment on above: Performed By: #### 2 29500 #### [facility],[address] [place] [address] Lymph # 1.03 x10EE3/UL Normal 0.80 - 2.80 [facility] Comment on above: Performed By: #### 2 66078 #### [facility],[address] [place] [address] Lymphocytes/100 WBC (Bld) 14.4 % Low 20.0 - 45.0 [facility] Comment on above: Performed By: #### 2 19840 #### [facility],[address] [place] [address] MANUAL DIFF N/A Normal [facility] Comment on above: Performed By: #### 2 69137 #### [facility],[address] [place] [address] MCH (RBC) [Entitic mass] 32 pg Normal 27 - 33 [facility] Comment on above: Performed By: #### 2 83329 #### [facility],[address] [place] [address] MCHC 34 X10 3 Normal 32 - 36 [facility] Comment on above: Performed By: #### 2 11685 #### [facility],[address] [place], [place] [id number] MCV (RBC) [Entitic vol] 94 fL Normal 81 - 98 [facility] Comment on above: Performed By: #### 2 32545 #### [facility],[address] [place] [address] Tift # 0.53 x10EE3/UL Normal 0.20 - 1.00 [facility] Comment on above: Performed By: #### 2 61484 #### [facility],[address] [place] [address] MONOS % 7.4 % Normal 0.0 - 10.0 [facility] Comment on above: Performed By: #### 2 25991 #### [facility],[address] [place] [address] 59756 Morphology Frank (Bld) [Interp] N/A Normal [facility] Comment on above: Performed By: #### 2 90106 #### [facility],[address] [place] [address] 16562 Neut # 5.37 x10EE3/UL Normal 1.50 - 7.10 [facility] Comment on above: Performed By: #### 2 39816 #### [facility],[address] [place], [place] [address] Neutrophils/100 WBC (Bld) 75.4 % Normal 46.0 - 76.0 [facility] Comment on above: Performed By: #### 2 58520 #### [facility],[address] [place], [place] [address] PLATELET 170 x10EE3/UL Normal 150 - 450 [facility] Comment on above: Performed By: #### 2 35145 #### [facility],[address] [place] [address] 83085 Platelet mean volume (Bld) [Entitic vol] 8.5 fL Normal 6.4 - 10.5 [facility] Comment on above: Result Comment: AUTO MATED DIFFERENTIAL Performed By: #### 2 28868 #### [facility],[address] [place] [address] 61571 RBC 3.59 x 10EE6/UL Low 4.50 - 6.00 [facility] Comment on above: Performed By: #### 2 18464 #### [facility],[address] [place] [address] 08834 WBC 7.1 x 10EE3/UL Normal 4.5 - 10.8 [facility] Comment on above: Performed By: #### 2 66212 #### [facility],[address] [place] [address] 67429 [facility] Parathyrin.intact [Mass/Vol] 92 pg/mL High 15-65 [facility] Comment on above: Order Comment: Speci men Type: BLOOD SPECIMEN Ordering Facility: [facility] Address: [address] [place] [address] Performed By: #### 2 731-8 #### [facility] CLIA [id number] [address] [place] [address] [place] [address] [place] [facility] URIC ACIDon 04-12-2025 Urate [Mass/Vol] 5.3 mg/dL Normal 3.5 - 7.2 [facility] Comment on above: Performed By: #### 2 09428 #### [facility],[address] [place] [address] 77762 URINE CREATININE AND PROTEIN RATIOon 04-12-2025 CREATININE UR 50.94 mg/dl Normal [facility] Comment on above: Performed By: #### 2 04278 #### [facility],[address] [place] [address] 53200 PC RATIO 1.41 mg/dL Normal 0.00 - 10.00 [facility] Comment on above: Performed By: #### 2 87480 #### [facility],[address] [place] [address] 52107 Protein (U) [Mass/Vol] 71.70 mg/dL High 0.00 - 10.00 [facility] Comment on above: Performed By: #### 2 70820 #### [facility],[address] [place] [address] 62237 VITAMIN D, 25 HYDROXYon 03-30 VitD 26.10 ng/mL Low 30.00 - 100 [facility] Comment on above: Result Comment: 25-O HD3 indicates both endogenous production and supplementation. 25-OHD2 is an indicator of exogenous sources, such as diet or supplementation. Therapy is based on measurement of Total 25-OHD, with levels <20 ng/mL indicative of Vitamin D deficiency, while levels between 20 ng/mL and 30 ng/mL suggest insufficiency. Optimal levels are >=30ng/mL. Vitamin D, 25-OH D3 Not Established Vitamin D, 25-OH D2 Not Established Performed By: #### 2 77370 #### [facility],[address] [place] [address] 40162 CBC + DIFFon 03-15-2025 Baso # 0.02 x10EE3/UL Normal 0.00 - 0.10 [facility] Comment on above: Performed By: #### 2 65747 #### [facility],[address] [place] [address] 56482 Basophils/100 WBC (Bld) 0.2 % Normal 0.0 - 2.0 [facility] Comment on above: Performed By: #### 2 41263 #### [place] [address] CBC + DIFF Normal [facility] Comment on above: Result Comment: CBC- COMPLETE BLOOD COUNT Performed By: #### 2 45650 #### [place] [address] EO # 0.18 x10EE3/UL Normal 0.00 - 0.50 [facility] Comment on above: Performed By: #### 2 75473 #### [address] [address] Eosinophils/100 WBC (Bld) 2.6 % Normal 0.0 - 7.0 [facility] Comment on above: Performed By: #### 2 62534 #### [place] [id number] Erythrocyte distribution width (RBC) [Ratio] 13.4 % Normal 12.0 - 15.6 [facility] Comment on above: Performed By: #### 2 16426 #### [place] [address] Hematocrit (Bld) [Volume fraction] 33.6 % Low 40.0 - 52.0 [facility] Comment on above: Performed By: #### 2 67926 #### [facility],[address] [place] [address] Hemoglobin (Bld) [Mass/Vol] 11.2 g/dL Low 13.0 - 17.5 [facility] Comment on above: Performed By: #### 2 72008 #### [facility],[address] [place] [address] Lymph # 1.00 x10EE3/UL Normal 0.80 - 2.80 [facility] Comment on above: Performed By: #### 2 29228 #### [facility],[address] [place] [address] Lymphocytes/100 WBC (Bld) 14.1 % Low 20.0 - 45.0 [facility] Comment on above: Performed By: #### 2 49471 #### [facility],[address] [place] [address] MANUAL DIFF N/A Normal [facility] Comment on above: Performed By: #### 2 02467 #### [facility],[address] [place] [address] MCH (RBC) [Entitic mass] 31 pg Normal 27 - 33 [facility] Comment on above: Performed By: #### 2 51660 #### [facility],[address] [place] [address] MCHC 33 X10 3 Normal 32 - 36 [facility] Comment on above: Performed By: #### 2 33903 #### [facility],[address] [place] [address] MCV (RBC) [Entitic vol] 94 fL Normal 81 - 98 [facility] Comment on above: Performed By: #### 2 34994 #### [facility],[address] [place] [address] Tift # 0.56 x10EE3/UL Normal 0.20 - 1.00 [facility] Comment on above: Performed By: #### 2 09577 #### [facility],[address] [place], [place] [address] MONOS % 7.9 % Normal 0.0 - 10.0 [facility] Comment on above: Performed By: #### 2 51551 #### [facility],[address] [place] [address] 74437 Morphology Frank (Bld) [Interp] N/A Normal [facility] Comment on above: Performed By: #### 2 24832 #### [facility],[address] [place] [address] Neut # 5.35 x10EE3/UL Normal 1.50 - 7.10 [facility] Comment on above: Performed By: #### 2 78278 #### [facility],[address] [place] [address] Neutrophils/100 WBC (Bld) 75.2 % Normal 46.0 - 76.0 [facility] Comment on above: Performed By: #### 2 13578 #### [facility],[address] [place] [address] PLATELET 170 x10EE3/UL Normal 150 - 450 [facility] Comment on above: Performed By: #### 2 89647 #### [facility],[address] [place] [address] Platelet mean volume (Bld) [Entitic vol] 8.5 fL Normal 6.4 - 10.5 [facility] Comment on above: Result Comment: AUTO MATED DIFFERENTIAL Performed By: #### 2 79482 #### [facility],[address] [place], [place] [address] RBC 3.58 x 10EE6/UL Low 4.50 - 6.00 [facility] Comment on above: Performed By: #### 2 84275 #### [facility],[address] [place], [place] [address] WBC 7.1 x 10EE3/UL Normal 4.5 - 10.8 [facility] Comment on above: Performed By: #### 2 01365 #### [facility],[address] [place] [address] 43256 CMP with eGFRon 03-15-2025 AGE 79 years Normal [facility] Comment on above: Performed By: #### 2 63985 #### [facility],[address] [place] [address] 11455 Albumin [Mass/Vol] 3.2 g/dL Low 3.4 - 5.0 [facility] Comment on above: Performed By: #### 2 71273 #### [facility],[address] [place] [address] 54389 Albumin/Globulin [Mass ratio] 0.9 {ratio} Normal 0.9 - 1.6 [facility] Comment on above: Performed By: #### 2 05926 #### [facility],[address] [place] [address] 57816 ALK PHOS 66 U/L Normal 46 - 116 [facility] Comment on above: Performed By: #### 2 47711 #### [facility],[address] [place] [address] 89336 ALT [Catalytic activity/Vol] 7 U/L Low 16 - 63 [facility] Comment on above: Performed By: #### 2 31828 #### [facility],[address] [place] [address] 03363 Anion gap [Moles/Vol] 12 mmol/L Normal 10 - 20 [facility] Comment on above: Performed By: #### 2 29202 #### [facility],[address] [place] [address] 31551 AST [Catalytic activity/Vol] 7 U/L Low 15 - 37 [facility] Comment on above: Performed By: #### 2 53676 #### [facility],[address] [place] [address] 71967 B/C RATIO 18 ratio Normal 0 - 30 [facility] Comment on above: Performed By: #### 2 39286 #### [facility],[address] [place] [address] 31321 Bilirubin [Mass/Vol] 0.8 mg/dL Normal 0.2 - 1.0 [facility] Comment on above: Performed By: #### 2 66116 #### [facility],[address] [place] [address] 02553 Calcium [Mass/Vol] 8.8 mg/dL Normal 8.5 - 10.1 [facility] Comment on above: Performed By: #### 2 99829 #### [facility],[address] [place] [address] 46415 Chloride [Moles/Vol] 112 mmol/L High 98 - 107 [facility] Comment on above: Performed By: #### 2 42871 #### [facility],[address] [place] [address] 94234 CMP with eGFR Normal [facility] Comment on above: Result Comment: COMP REHENSIVE METABOLIC PANEL Performed By: #### 2 60541 #### [facility],[address] [place] [address] 76457 CO2 [Moles/Vol] 29.0 mmol/L Normal 21.0 - 32.0 [facility] Comment on above: Performed By: #### 2 31483 #### [facility],[address] [place] [address] 44444 Creatinine [Mass/Vol] 2.49 mg/dL High 0.70 - 1.30 [facility] Comment on above: Performed By: #### 2 94690 #### [facility],[address] [place] [address] 37189 eGFR 25 ML/MINUTE Low 60 - 999 [facility] Comment on above: Performed By: #### 2 34615 #### [facility],[address] [place] [address] 95633 eGFR(AA) 30 ML/MINUTE Low 60 - 999 [facility] Comment on above: Result Comment: ACCO RDING TO THE NATIONAL KIDNEY DISEASE EDUCATION PROGRAM(NKDE), A NORMAL eGFR IS A VALUE GREATER THAN OR EQUAL TO 60 ML/MIN/1.73 SQ METERS. CHRONIC KIDNEY DISEASE: <60mL/MIN/1.73 SQ METERS KIDNEY FAILURE: <15mL/MIN/1.73 SQ METERS THIS TEST SHOULD ONLY BE USED FOR PATIENTS 18 YEARS OF AGE AND OLDER. Performed By: #### 2 84476 #### [facility],[address] [place] [address] 64293 Globulin (S) [Mass/Vol] 3.6 g/dL Normal 1.5 - 3.8 [facility] Comment on above: Performed By: #### 2 86886 #### [facility],[address] [place] [address] 84027 Glucose [Mass/Vol] 161 mg/dL High 74 - 106 [facility] Comment on above: Performed By: #### 2 26872 #### [facility],[address] [place] [address] 97578 Potassium [Moles/Vol] 4.0 mmol/L Normal 3.5 - 5.1 [facility] Comment on above: Performed By: #### 2 23644 #### [facility],[address] [place] [address] 31514 Protein [Mass/Vol] 6.8 g/dL Normal 6.4 - 8.2 [facility] Comment on above: Performed By: #### 2 66664 #### [facility],[address] [place] [address] 40093 Sodium [Moles/Vol] 149 mmol/L High 136 - 145 [facility] Comment on above: Performed By: #### 2 65453 #### [facility],[address] [place] [address] 98573 Urea nitrogen [Mass/Vol] 45 mg/dL High 7 - 18 [facility] Comment on above: Performed By: #### 2 69560 #### [facility],[address] [place] [address] 20692 HEMOGLOBIN A1C (POM)on 03-15 Glucose [Mass/Vol] 148.5 mg/dL High 0.0 - 0.0 [facility] Comment on above: Result Comment: BLDo HEMOGLOBIN A1C REFERENCE RANGESBLDo Suggested Diagnosis HbA1c(%) HbA1C (mmol/mol Diabetic >/=6.5 >/=48 Prediabetes 5.7 - 6.4 39 - 47 Normal <5.7 <39 Performed By: #### 2 03423 #### [facility],[address] [place] [address] 82751 HbA1c (Bld) [Mass fraction] 6.8 % High 0.0 - 6.5 [facility] Comment on above: Performed By: #### 2 22998 #### [facility],[address] [place] [address] 63684 LIPID PROFILEon 03-15-2025 Cholesterol [Mass/Vol] 118 mg/dL Normal 0 - 240 [facility] Comment on above: Performed By: #### 2 75416 #### [facility],[address] [place] [address] 50099 Cholesterol in HDL [Mass/Vol] 63 mg/dL High 40 - 60 [facility] Comment on above: Performed By: #### 2 22771 #### [facility],[address] [place] [address] 96915 Cholesterol in LDL [Mass/Vol] 45 mg/dL Normal 0 - 129 [facility] Comment on above: Performed By: #### 2 55280 #### [facility],[address] [place] [address] 09190 Cholesterol.total/C holesterol in HDL [Mass ratio] 1.9 {ratio} Normal 0.0 - 5.0 [facility] Comment on above: Performed By: #### 2 00215 #### [facility],[address] [place] [address] 76010 Lipid 1996 panel Normal [facility] Comment on above: Result Comment: LIPI D PROFILE Performed By: #### 2 27698 #### [facility],[address] [place] [address] 62468 Triglyceride [Mass/Vol] 48 mg/dL Normal 0 - 150 [facility] Comment on above: Performed By: #### 2 85714 #### [facility],[address] [place] [address] 44515 PTH, INTACT [CCL]on 12-08-19 25 PTH, Intact 74 pg/mL High [facility] Comment on above: Result Comment: [facility] [address] [place] [address] Romeo Ca III, M.D. [id number] Performed By: #### 2 91213 #### [facility],[address] [place] [address] 05354 CBC + DIFFon 12-07-2024 Baso # 0.02 x10EE3/UL Normal 0.00 - 0.10 [facility] Comment on above: Performed By: #### 2 02302 #### [facility],[address] [place] [address] 29666 Basophils/100 WBC (Bld) 0.3 % Normal 0.0 - 2.0 [facility] Comment on above: Performed By: #### 2 09489 #### [facility],[address] [place] [address] 77371 CBC + DIFF Normal [facility] Comment on above: Result Comment: CBC- COMPLETE BLOOD COUNT Performed By: #### 2 84305 #### [facility],[address] [place] [address] 65911 EO # 0.17 x10EE3/UL Normal 0.00 - 0.50 [facility] Comment on above: Performed By: #### 2 84533 #### [facility],[address] [place] [address] 72211 Eosinophils/100 WBC (Bld) 2.2 % Normal 0.0 - 7.0 [facility] Comment on above: Performed By: #### 2 52646 #### [facility],[address] [place] [address] Erythrocyte distribution width (RBC) [Ratio] 13.2 % Normal 12.0 - 15.6 [facility] Comment on above: Performed By: #### 2 24471 #### [facility],[address] [place] [address] Hematocrit (Bld) [Volume fraction] 39.2 % Low 40.0 - 52.0 [facility] Comment on above: Performed By: #### 2 42908 #### [facility],[address] [place] [address] Hemoglobin (Bld) [Mass/Vol] 13.2 g/dL Normal 13.0 - 17.5 [facility] Comment on above: Performed By: #### 2 84764 #### [place] [address] Lymph # 1.02 x10EE3/UL Normal 0.80 - 2.80 [facility] Comment on above: Performed By: #### 2 80992 #### [place] [address] Lymphocytes/100 WBC (Bld) 13.3 % Low 20.0 - 45.0 [facility] Comment on above: Performed By: #### 2 90731 #### [facility],[address] [place], [place] [address] MANUAL DIFF N/A Normal [facility] Comment on above: Performed By: #### 2 13217 #### [place] [id number] MCH (RBC) [Entitic mass] 31 pg Normal 27 - 33 [facility] Comment on above: Performed By: #### 2 62452 #### [place] [address] MCHC 34 X10 3 Normal 32 - 36 [facility] Comment on above: Performed By: #### 2 20537 #### [facility],[address] [place] [address] 99869 MCV (RBC) [Entitic vol] 93 fL Normal 81 - 98 [facility] Comment on above: Performed By: #### 2 54673 #### [facility],[address] [place] [address] 81157 Tift # 0.50 x10EE3/UL Normal 0.20 - 1.00 [facility] Comment on above: Performed By: #### 2 64344 #### [facility],[address] [place] [address] 85482 MONOS % 6.6 % Normal 0.0 - 10.0 [facility] Comment on above: Performed By: #### 2 34939 #### [facility],[address] [place] [address] 74868 Morphology Frank (Bld) [Interp] N/A Normal [facility] Comment on above: Performed By: #### 2 49996 #### [facility],[address] [place] [address] 08625 Neut # 5.94 x10EE3/UL Normal 1.50 - 7.10 [facility] Comment on above: Performed By: #### 2 84440 #### [facility],[address] [place] [address] 67673 Neutrophils/100 WBC (Bld) 77.6 % High 46.0 - 76.0 [facility] Comment on above: Performed By: #### 2 38758 #### [facility],[address] [place] [address] 09872 PLATELET 161 x10EE3/UL Normal 150 - 450 [facility] Comment on above: Performed By: #### 2 32852 #### [facility],[address] [place] [address] 95501 Platelet mean volume (Bld) [Entitic vol] 8.3 fL Normal 6.4 - 10.5 [facility] Comment on above: Result Comment: AUTO MATED DIFFERENTIAL Performed By: #### 2 20878 #### [facility],[address] [place], [place] [address] RBC 4.24 x 10EE6/UL Low 4.50 - 6.00 [facility] Comment on above: Performed By: #### 2 69647 #### [facility],[address] [place] [address] 92951 WBC 7.7 x 10EE3/UL Normal 4.5 - 10.8 [facility] Comment on above: Performed By: #### 2 05597 #### [facility],[address] [place] [address] 49701 CMP with eGFRon 12-07-2024 AGE 79 years Normal [facility] Comment on above: Performed By: #### 2 90430 #### [facility],[address] [place], [place] [address] Albumin [Mass/Vol] 3.3 g/dL Low 3.4 - 5.0 [facility] Comment on above: Performed By: #### 2 92631 #### [facility],[address] [place] [address] 26388 Albumin/Globulin [Mass ratio] 0.9 {ratio} Normal 0.9 - 1.6 [facility] Comment on above: Performed By: #### 2 06997 #### [facility],[address] [place] [address] 82053 ALK PHOS 90 U/L Normal 46 - 116 [facility] Comment on above: Performed By: #### 2 17951 #### [address] [address] ALT [Catalytic activity/Vol] 6 U/L Low 16 - 63 [facility] Comment on above: Performed By: #### 2 13903 #### [facility],[address] [place] [address] 23365 Anion gap [Moles/Vol] 12 mmol/L Normal 10 - 20 [facility] Comment on above: Performed By: #### 2 68862 #### [facility],[address] [place] [address] AST [Catalytic activity/Vol] 13 U/L Low 15 - 37 [facility] Comment on above: Performed By: #### 2 10699 #### [facility],[address] [place] [address] B/C RATIO 15 ratio Normal 0 - 30 [facility] Comment on above: Performed By: #### 2 36765 #### [facility],[address] [place] [address] Bilirubin [Mass/Vol] 0.8 mg/dL Normal 0.2 - 1.0 [facility] Comment on above: Performed By: #### 2 70587 #### [facility],[address] [place] [address] Calcium [Mass/Vol] 9.1 mg/dL Normal 8.5 - 10.1 [facility] Comment on above: Performed By: #### 2 42387 #### [facility],[address] [place] [address] Chloride [Moles/Vol] 109 mmol/L High 98 - 107 [facility] Comment on above: Performed By: #### 2 47776 #### [facility],[address] [place], [place] [address] CMP with eGFR Normal [facility] Comment on above: Result Comment: COMP REHENSIVE METABOLIC PANEL Performed By: #### 2 31117 #### [facility],[address] [place], [place] [address] CO2 [Moles/Vol] 28.2 mmol/L Normal 21.0 - 32.0 [facility] Comment on above: Performed By: #### 2 67209 #### [facility],[address] [place] [address] 49975 Creatinine [Mass/Vol] 2.27 mg/dL High 0.70 - 1.30 [facility] Comment on above: Performed By: #### 2 75659 #### [facility],[address] [place] [address] 27263 eGFR 28 ML/MINUTE Low 60 - 999 [facility] Comment on above: Performed By: #### 2 41397 #### [facility],[address] [place] [address] 62037 eGFR(AA) 34 ML/MINUTE Low 60 - 999 [facility] Comment on above: Result Comment: ACCO RDING TO THE NATIONAL KIDNEY DISEASE EDUCATION PROGRAM(NKDE), A NORMAL eGFR IS A VALUE GREATER THAN OR EQUAL TO 60 ML/MIN/1.73 SQ METERS. CHRONIC KIDNEY DISEASE: <60mL/MIN/1.73 SQ METERS KIDNEY FAILURE: <15mL/MIN/1.73 SQ METERS THIS TEST SHOULD ONLY BE USED FOR PATIENTS 18 YEARS OF AGE AND OLDER. Performed By: #### 2 50224 #### [facility],[address] [place] [address] 22874 Globulin (S) [Mass/Vol] 3.7 g/dL Normal 1.5 - 3.8 [facility] Comment on above: Performed By: #### 2 83591 #### [facility],[address] [place] [address] 84609 Glucose [Mass/Vol] 175 mg/dL High 74 - 106 [facility] Comment on above: Performed By: #### 2 41531 #### [facility],[address] [place] [address] 76512 Potassium [Moles/Vol] 4.3 mmol/L Normal 3.5 - 5.1 [facility] Comment on above: Performed By: #### 2 86718 #### [facility],[address] [place] [address] 90667 Protein [Mass/Vol] 7.0 g/dL Normal 6.4 - 8.2 [facility] Comment on above: Performed By: #### 2 27944 #### [facility],[address] [place] [address] 09294 Sodium [Moles/Vol] 145 mmol/L Normal 136 - 145 [facility] Comment on above: Performed By: #### 2 14541 #### [facility],[address] [place] [address] 68992 Urea nitrogen [Mass/Vol] 33 mg/dL High 7 - 18 [facility] Comment on above: Performed By: #### 2 14763 #### [facility],[address] [place] [address] 57281 HEMOGLOBIN A1C (POM)on 12-07 Glucose [Mass/Vol] 151.3 mg/dL High 0.0 - 0.0 [facility] Comment on above: Result Comment: BLDo HEMOGLOBIN A1C REFERENCE RANGESBLDo Suggested Diagnosis HbA1c(%) HbA1C (mmol/mol Diabetic >/=6.5 >/=48 Prediabetes 5.7 - 6.4 39 - 47 Normal <5.7 <39 Performed By: #### 2 12810 #### [facility],[address] [place] [address] 44006 HbA1c (Bld) [Mass fraction] 6.9 % High 0.0 - 6.5 [facility] Comment on above: Performed By: #### 2 82096 #### [facility],[address] [place] [address] 79796 LIPID PROFILEon 12-07-2024 Cholesterol [Mass/Vol] 121 mg/dL Normal 0 - 240 [facility] Comment on above: Performed By: #### 2 71748 #### [facility],[address] [place] [address] 43666 Cholesterol in HDL [Mass/Vol] 59 mg/dL Normal 40 - 60 [facility] Comment on above: Performed By: #### 2 78458 #### [facility],[address] [place] [address] 97368 Cholesterol in LDL [Mass/Vol] 47 mg/dL Normal 0 - 129 [facility] Comment on above: Performed By: #### 2 47200 #### [facility],[address] [place] [address] 31807 Cholesterol.total/C holesterol in HDL [Mass ratio] 2.1 {ratio} Normal 0.0 - 5.0 [facility] Comment on above: Performed By: #### 2 40391 #### [facility],[address] [place] [address] 54797 Lipid 1996 panel Normal [facility] Comment on above: Result Comment: LIPI D PROFILE Performed By: #### 2 48239 #### [facility],[address] [place] [address] 54642 Triglyceride [Mass/Vol] 75 mg/dL Normal 0 - 150 [facility] Comment on above: Performed By: #### 2 71835 #### [facility],[address] [place] [address] 71648 PTH-Intact SerPl-mCncon Parathyrin.intact [Mass/Vol] 74 pg/mL High 15-65 [facility] Comment on above: Order Comment: Speci men Type: BLOOD SPECIMEN Ordering Facility: [facility] Address: [address] [place] [address] Performed By: #### 2 731-8 #### [facility] CLIA [id number] [address] [place] [address] [place] TSHon 12-07-2024 TSH Qn 1.41 m[IU]/L Normal 0.35 - 3.74 [facility] Comment on above: Performed By: #### 2 20948 #### [facility],[address] [place] [address] 57276 URIC ACIDon 12-07-2024 Urate [Mass/Vol] 4.7 mg/dL Normal 3.5 - 7.2 [facility] Comment on above: Performed By: #### 2 41100 #### [facility],[address] [place] [address] 54403 URINALYSISon 12-07-2024 Amorphous NONE Normal [facility] Comment on above: Performed By: #### 2 98588 #### [facility],[address] [place] [address],[facility] 96985 Bacteria NONE Normal [facility] Comment on above: Performed By: #### 2 95842 #### [facility],[address] [place] [address] 47782 Bilirubin Ql (U) Negative Normal NORMAL: NEGATIVE [facility] Comment on above: Performed By: #### 2 91884 #### [facility],[address] [place] [address] 36361 Casts NONE Normal [facility] Comment on above: Performed By: #### 2 91358 #### [facility],[address] [place] [address] 41175 Clarity (U) clear Normal NORMAL: CLEAR [facility] Comment on above: Performed By: #### 2 28994 #### [facility],[address] [place] [address] 33820 Color (U) yellow Normal NORMAL: YELLOW [facility] Comment on above: Performed By: #### 2 82254 #### [facility],[address] [place] [address] 30426 Crystals LM Nom (Urine sed) NONE Normal [facility] Comment on above: Performed By: #### 2 81471 #### [facility],[address] [place] [address] 56022 Epi Cells NONE Normal [facility] Comment on above: Performed By: #### 2 60027 #### [facility],[address] [place] [address] 94952 Glucose Ql (U) 1000 Abnormal NORMAL: NORMAL [facility] Comment on above: Performed By: #### 2 55706 #### [facility],[address] [place], [place] [address] Hemoglobin Ql (U) 250 Abnormal NORMAL: NEGATIVE [facility] Comment on above: Performed By: #### 2 95734 #### [facility],[address] [place] [address] 83219 Ketone Negative Normal NORMAL: NEGATIVE [facility] Comment on above: Performed By: #### 2 17816 #### [facility],[address] [place] [address] 16617 Leukocytes Negative Normal NORMAL: NEGATIVE [facility] Comment on above: Performed By: #### 2 04433 #### [facility],[address] [place] [address] Mucous NONE Normal [facility] Comment on above: Performed By: #### 2 55531 #### [facility],[address] [place], [place] [address] Nitrite Ql (U) Negative Normal NORMAL: NEGATIVE [facility] Comment on above: Performed By: #### 2 77670 #### [facility],[address] [place], [place] [address] pH (U) 5 [pH] Normal NORMAL: 5.0-8.0 [facility] Comment on above: Performed By: #### 2 01177 #### [facility],[address] [place] [address] 48940 Protein Ql (U) 100 Abnormal NORMAL: NEGATIVE [facility] Comment on above: Performed By: #### 2 93558 #### [facility],[address] [place], [place] [address] Rbc 0-5 Normal 0-3/hpf [facility] Comment on above: Performed By: #### 2 24090 #### [facility],[address] [place], [place] [address] Sp [place] 1.020 Normal NORMAL: 1.010-1.030 [facility] Comment on above: Performed By: #### 2 43864 #### [facility],[address] [place] [address] 78844 Specimen Type R Normal [facility] Comment on above: Performed By: #### 2 05508 #### [facility],[address] [place] [address] 53344 Urinalysis dipstick W Reflex Microscopic panel (U) SEE BELOW Normal [facility] Comment on above: Result Comment: MICR OSCOPIC Performed By: #### 2 43455 #### [facility],[address] [place] [address] 99987 Urobilinog NORM Normal NORMAL: NORMAL [facility] Comment on above: Performed By: #### 2 58818 #### [facility],[address] [place] [address] 82424 Wbc 1-5 Normal 0-5/hpf [facility] Comment on above: Performed By: #### 2 27153 #### [facility],[address] [place] [address] 20796 Yeast NONE Normal [facility] Comment on above: Performed By: #### 2 50619 #### [facility],[address] [place] [address]7210 URINE CREATININE AND PROTEIN RATIOon 12-07-2024 CREATININE UR 69.06 mg/dl Normal [facility] Comment on above: Performed By: #### 2 33455 #### [facility],[address] [place] [address] 06984 PC RATIO 2.72 mg/dL Normal 0.00 - 10.00 [facility] Comment on above: Performed By: #### 2 10398 #### [facility],[address] [place] [address] 43424 Protein (U) [Mass/Vol] 188.10 mg/dL High 0.00 - 10.00 [facility] Comment on above: Performed By: #### 2 96043 #### [facility],[address] [place] [address] 64228 VITAMIN D, 25 HYDROXYon 01-0 VitD 34.20 ng/mL Normal 30.00 - 100 [facility] Comment on above: Result Comment: 25-O HD3 indicates both endogenous production and supplementation. 25-OHD2 is an indicator of exogenous sources, such as diet or supplementation. Therapy is based on measurement of Total 25-OHD, with levels <20 ng/mL indicative of Vitamin D deficiency, while levels between 20 ng/mL and 30 ng/mL suggest insufficiency. Optimal levels are >=30ng/mL. Vitamin D, 25-OH D3 Not Established Vitamin D, 25-OH D2 Not Established Performed By: #### 2 64112 #### [place] [address] CBC + DIFFon 09-14-2024 Baso # 0.02 x10EE3/UL Normal 0.00 - 0.10 [facility] Comment on above: Performed By: #### 2 70489 #### [address] [address] Basophils/100 WBC (Bld) 0.2 % Normal 0.0 - 2.0 [facility] Comment on above: Performed By: #### 2 86455 #### [address] [address] CBC + DIFF Normal [facility] Comment on above: Result Comment: CBC- COMPLETE BLOOD COUNT Performed By: #### 2 19472 #### [address] [address] EO # 0.23 x10EE3/UL Normal 0.00 - 0.50 [facility] Comment on above: Performed By: #### 2 47965 #### [address] [address] Eosinophils/100 WBC (Bld) 3.2 % Normal 0.0 - 7.0 [facility] Comment on above: Performed By: #### 2 47319 #### [address] [address] Erythrocyte distribution width (RBC) [Ratio] 13.2 % Normal 12.0 - 15.6 [facility] Comment on above: Performed By: #### 2 58534 #### [facility],[address] [place] [address] Hematocrit (Bld) [Volume fraction] 40.8 % Normal 40.0 - 52.0 [facility] Comment on above: Performed By: #### 2 49847 #### [facility],[address] [place] [address] Hemoglobin (Bld) [Mass/Vol] 13.3 g/dL Normal 13.0 - 17.5 [facility] Comment on above: Performed By: #### 2 05693 #### [facility],[address] [place] [address] Lymph # 0.89 x10EE3/UL Normal 0.80 - 2.80 [facility] Comment on above: Performed By: #### 2 79875 #### [facility],[address] [place] [address] Lymphocytes/100 WBC (Bld) 12.4 % Low 20.0 - 45.0 [facility] Comment on above: Performed By: #### 2 17457 #### [facility],[address] [place] [address] MANUAL DIFF N/A Normal [facility] Comment on above: Performed By: #### 2 44304 #### [facility],[address] [place] [address] MCH (RBC) [Entitic mass] 30 pg Normal 27 - 33 [facility] Comment on above: Performed By: #### 2 19699 #### [facility],[address] [place] [address] MCHC 33 X10 3 Normal 32 - 36 [facility] Comment on above: Performed By: #### 2 29734 #### [facility],[address] [place] [address] MCV (RBC) [Entitic vol] 92 fL Normal 81 - 98 [facility] Comment on above: Performed By: #### 2 96153 #### [facility],[address] [place] [address] Tift # 0.55 x10EE3/UL Normal 0.20 - 1.00 [facility] Comment on above: Performed By: #### 2 78190 #### [facility],[address] [place] [address] MONOS % 7.6 % Normal 0.0 - 10.0 [facility] Comment on above: Performed By: #### 2 82050 #### [facility],[address] [place] [address] Morphology Frank (Bld) [Interp] N/A Normal [facility] Comment on above: Performed By: #### 2 83175 #### [facility],[address] [place] [address] Neut # 5.49 x10EE3/UL Normal 1.50 - 7.10 [facility] Comment on above: Performed By: #### 2 43479 #### [facility],[address] [place] [address] Neutrophils/100 WBC (Bld) 76.5 % High 46.0 - 76.0 [facility] Comment on above: Performed By: #### 2 98094 #### [facility],[address] [place] [address] PLATELET 153 x10EE3/UL Normal 150 - 450 [facility] Comment on above: Performed By: #### 2 01567 #### [facility],[address] [place], [place] [phone] Platelet mean volume (Bld) [Entitic vol] 8.0 fL Normal 6.4 - 10.5 [facility] Comment on above: Result Comment: AUTO MATED DIFFERENTIAL Performed By: #### 2 70954 #### [facility],[address] [place] [address] 58722 RBC 4.42 x 10EE6/UL Low 4.50 - 6.00 [facility] Comment on above: Performed By: #### 2 12381 #### [facility],[address] [place] [address] 21743 WBC 7.2 x 10EE3/UL Normal 4.5 - 10.8 [facility] Comment on above: Performed By: #### 2 35875 #### [facility],[address] [place] [address] 72434 CMP with eGFRon 09-14-2024 AGE 79 years Normal [facility] Comment on above: Performed By: #### 2 74594 #### [facility],[address] [place] [address] 32007 Albumin [Mass/Vol] 3.2 g/dL Low 3.4 - 5.0 [facility] Comment on above: Performed By: #### 2 60550 #### [facility],[address] [place] [address] 27320 Albumin/Globulin [Mass ratio] 0.8 {ratio} Low 0.9 - 1.6 [facility] Comment on above: Performed By: #### 2 53813 #### [facility],[address] [place] [address] 76748 ALK PHOS 85 U/L Normal 46 - 116 [facility] Comment on above: Performed By: #### 2 30751 #### [facility],[address] [place] [address] 32884 ALT [Catalytic activity/Vol] 10 U/L Low 16 - 63 [facility] Comment on above: Performed By: #### 2 99581 #### [facility],[address] [place] [address] 13575 Anion gap [Moles/Vol] 8 mmol/L Low 10 - 20 [facility] Comment on above: Performed By: #### 2 75159 #### [facility],[address] [place] [address] 86556 AST [Catalytic activity/Vol] 12 U/L Low 15 - 37 [facility] Comment on above: Performed By: #### 2 66414 #### [facility],[address] [place] [address] 60055 B/C RATIO 16 ratio Normal 0 - 30 [facility] Comment on above: Performed By: #### 2 04298 #### [facility],[address] [place] [address] 35060 Bilirubin [Mass/Vol] 0.7 mg/dL Normal 0.2 - 1.0 [facility] Comment on above: Performed By: #### 2 34387 #### [facility],[address] [place] [address] 98729 Calcium [Mass/Vol] 8.8 mg/dL Normal 8.5 - 10.1 [facility] Comment on above: Performed By: #### 2 30705 #### [facility],[address] [place] [address] 84198 Chloride [Moles/Vol] 108 mmol/L High 98 - 107 [facility] Comment on above: Performed By: #### 2 39594 #### [facility],[address] [place] [address] 02399 CMP with eGFR Normal [facility] Comment on above: Result Comment: COMP REHENSIVE METABOLIC PANEL Performed By: #### 2 20197 #### [facility],[address] [place] [address] 44788 CO2 [Moles/Vol] 29.8 mmol/L Normal 21.0 - 32.0 [facility] Comment on above: Performed By: #### 2 03587 #### [facility],[address] [place] [address] 40229 Creatinine [Mass/Vol] 2.35 mg/dL High 0.70 - 1.30 [facility] Comment on above: Performed By: #### 2 01650 #### [facility],[address] [place] [address] 19447 eGFR 27 ML/MINUTE Low 60 - 999 [facility] Comment on above: Performed By: #### 2 47319 #### [facility],[address] [place] [address] 43870 eGFR(AA) 33 ML/MINUTE Low 60 - 999 [facility] Comment on above: Result Comment: ACCO RDING TO THE NATIONAL KIDNEY DISEASE EDUCATION PROGRAM(NKDE), A NORMAL eGFR IS A VALUE GREATER THAN OR EQUAL TO 60 ML/MIN/1.73 SQ METERS. CHRONIC KIDNEY DISEASE: <60mL/MIN/1.73 SQ METERS KIDNEY FAILURE: <15mL/MIN/1.73 SQ METERS THIS TEST SHOULD ONLY BE USED FOR PATIENTS 18 YEARS OF AGE AND OLDER. Performed By: #### 2 73114 #### [address] [address] Globulin (S) [Mass/Vol] 4.1 g/dL High 1.5 - 3.8 [facility] Comment on above: Performed By: #### 2 81673 #### [facility],[address] [place] [address] 49725 Glucose [Mass/Vol] 168 mg/dL High 74 - 106 [facility] Comment on above: Performed By: #### 2 89331 #### [address] [address] Potassium [Moles/Vol] 4.5 mmol/L Normal 3.5 - 5.1 [facility] Comment on above: Performed By: #### 2 69758 #### [address] [address] Protein [Mass/Vol] 7.3 g/dL Normal 6.4 - 8.2 [facility] Comment on above: Performed By: #### 2 57388 #### [place] [id number] Sodium [Moles/Vol] 141 mmol/L Normal 136 - 145 [facility] Comment on above: Performed By: #### 2 29771 #### [facility],[address] [place] [address] 80263 Urea nitrogen [Mass/Vol] 37 mg/dL High 7 - 18 [facility] Comment on above: Performed By: #### 2 73890 #### [facility],[address] [place], [place] [phone] HEMOGLOBIN A1C (POM)on 09-14 Glucose [Mass/Vol] 151.3 mg/dL High 0.0 - 0.0 [facility] Comment on above: Result Comment: BLDo HEMOGLOBIN A1C REFERENCE RANGESBLDo Suggested Diagnosis HbA1c(%) HbA1C (mmol/mol Diabetic >/=6.5 >/=48 Prediabetes 5.7 - 6.4 39 - 47 Normal <5.7 <39 Performed By: #### 2 54177 #### [facility],[address] [place], [place] [address] HbA1c (Bld) [Mass fraction] 6.9 % High 0.0 - 6.5 [facility] Comment on above: Performed By: #### 2 30832 #### [facility],[address] [place] [address] 81437 LIPID PROFILEon 09-14-2024 Cholesterol [Mass/Vol] 122 mg/dL Normal 0 - 240 [facility] Comment on above: Performed By: #### 2 87603 #### [facility],[address] [place] [address] 68312 Cholesterol in HDL [Mass/Vol] 63 mg/dL High 40 - 60 [facility] Comment on above: Performed By: #### 2 54899 #### [facility],[address] [place] [address] 36446 Cholesterol in LDL [Mass/Vol] 42 mg/dL Normal 0 - 129 [facility] Comment on above: Performed By: #### 2 16855 #### [facility],[address] [place] [address] 28153 Cholesterol.total/C holesterol in HDL [Mass ratio] 1.9 {ratio} Normal 0.0 - 5.0 [facility] Comment on above: Performed By: #### 2 85160 #### [facility],[address] [place] [address] 99729 Lipid 1996 panel Normal [facility] Comment on above: Result Comment: LIPI D PROFILE Performed By: #### 2 83762 #### [facility],[address] [place] [address] 19385 Triglyceride [Mass/Vol] 85 mg/dL Normal 0 - 150 [facility] Comment on above: Performed By: #### 2 43548 #### [facility],[address] [place] [address] 71297 URINALYSISon 09-14-2024 Bilirubin Ql (U) Negative Normal NORMAL: NEGATIVE [facility] Comment on above: Performed By: #### 2 24038 #### [facility],[address] [place] [address] 77409 Clarity (U) clear Normal NORMAL: CLEAR [facility] Comment on above: Performed By: #### 2 86260 #### [facility],[address] [place] [address] 08861 Color (U) yellow Normal NORMAL: YELLOW [facility] Comment on above: Performed By: #### 2 41008 #### [facility],[address] [place] [address] 64413 Glucose Ql (U) 1000 Abnormal NORMAL: NORMAL [facility] Comment on above: Performed By: #### 2 43383 #### [facility],[address] [place] [address] 75139 Hemoglobin Ql (U) Negative Normal NORMAL: NEGATIVE [facility] Comment on above: Performed By: #### 2 57646 #### [facility],[address] [place], [place] [address] Ketone Negative Normal NORMAL: NEGATIVE [facility] Comment on above: Performed By: #### 2 66039 #### [facility],[address] [place] [address] 56745 Leukocytes Negative Normal NORMAL: NEGATIVE [facility] Comment on above: Performed By: #### 2 74189 #### [facility],[address] [place], [place] [address] Nitrite Ql (U) Negative Normal NORMAL: NEGATIVE [facility] Comment on above: Performed By: #### 2 26630 #### [facility],[address] [place] [address] pH (U) 5 [pH] Normal NORMAL: 5.0-8.0 [facility] Comment on above: Performed By: #### 2 37083 #### [facility],[address] [place], [place] [address] Protein Ql (U) 100 Abnormal NORMAL: NEGATIVE [facility] Comment on above: Performed By: #### 2 29392 #### [facility],[address] [place] [address] Sp [place] 1.015 Normal NORMAL: 1.010-1.030 [facility] Comment on above: Performed By: #### 2 30973 #### [facility],[address] [place] [address] Specimen Type R Normal [facility] Comment on above: Performed By: #### 2 52788 #### [facility],[address] [place], [place] [address] Urinalysis dipstick W Reflex Microscopic panel (U) NOT INDICATED Normal [facility] Comment on above: Performed By: #### 2 18188 #### [facility],[address] [place], [place] [address] Urobilinog NORM Normal NORMAL: NORMAL [facility] Comment on above: Performed By: #### 2 37677 #### [facility],[address] [place] [address] 96652 URINE MICROALBUMIN W/CREATIN INE, RANDOMon 09-14-2024 CREATININE UR 81.26 mg/dl Normal [facility] Comment on above: Performed By: #### 2 14844 #### [facility],[address] [place] [address] 09582 MICROALBUMIN UR 89.0 mg/dL High 0.1 - 25.1 [facility] Comment on above: Performed By: #### 2 74797 #### [facility],[address] [place] [address] 48803 UACR 1095 mg/g Normal [facility] Comment on above: Performed By: #### 2 20476 #### [facility],[address] [place] [address] 47348 PTH, INTACT [CCL]on 07-15-20 24 PTH, Intact 73 pg/mL High [facility] Comment on above: Result Comment: [facility] [address] [place] [address] Romeo Ca III, M.D. [id number] Performed By: #### 2 87333 #### [facility],[address] [place] [address] 61612 BMP with eGFRon 07-13-2024 AGE 79 years Normal [facility] Comment on above: Performed By: #### 2 04048 #### [facility],[address] [place] [address] 04486 Anion gap [Moles/Vol] 13 mmol/L Normal [facility] Comment on above: Performed By: #### 2 12424 #### [facility],[address] [place] [address] 54800 BMP with eGFR Normal [facility] Comment on above: Result Comment: BASI C METABOLIC PANEL Performed By: #### 2 94466 #### [facility],[address] [place] [address] 43561 Calcium [Mass/Vol] 9.1 mg/dL Normal 8.5 - 10.1 [facility] Comment on above: Performed By: #### 2 58676 #### [facility],[address] [place] [address] 94380 Chloride [Moles/Vol] 108 mmol/L High 98 - 107 [facility] Comment on above: Performed By: #### 2 98236 #### [facility],[address] [place] [address] 55469 CO2 [Moles/Vol] 26.7 mmol/L Normal 21.0 - 32.0 [facility] Comment on above: Performed By: #### 2 32008 #### [facility],[address] [place] [address] 46519 Creatinine [Mass/Vol] 2.26 mg/dL High 0.70 - 1.30 [facility] Comment on above: Performed By: #### 2 74639 #### [facility],[address] [place] [address] 69902 eGFR 28 ML/MINUTE Low 60 - 999 [facility] Comment on above: Performed By: #### 2 47375 #### [facility],[address] [place] [address] 10415 eGFR(AA) 34 ML/MINUTE Low 60 - 999 [facility] Comment on above: Result Comment: ACCO RDING TO THE NATIONAL KIDNEY DISEASE EDUCATION PROGRAM(NKDE), A NORMAL eGFR IS A VALUE GREATER THAN OR EQUAL TO 60 ML/MIN/1.73 SQ METERS. CHRONIC KIDNEY DISEASE: <60mL/MIN/1.73 SQ METERS KIDNEY FAILURE: <15mL/MIN/1.73 SQ METERS THIS TEST SHOULD ONLY BE USED FOR PATIENTS 18 YEARS OF AGE AND OLDER. Performed By: #### 2 60108 #### [facility],[address] [place] [address] 87342 Glucose [Mass/Vol] 146 mg/dL High 74 - 106 [facility] Comment on above: Performed By: #### 2 31393 #### [facility],[address] [place] [address] Potassium [Moles/Vol] 4.7 mmol/L Normal 3.5 - 5.1 [facility] Comment on above: Performed By: #### 2 42776 #### [facility],[address] [place] [address] Sodium [Moles/Vol] 143 mmol/L Normal 136 - 145 [facility] Comment on above: Performed By: #### 2 74253 #### [facility],[address] [place] [address] Urea nitrogen [Mass/Vol] 38 mg/dL High 7 - 18 [facility] Comment on above: Performed By: #### 2 00867 #### [facility],[address] [place] [address] CBC + DIFFon 07-13-2024 Baso # 0.02 x10EE3/UL Normal 0.00 - 0.10 [facility] Comment on above: Performed By: #### 2 50705 #### [facility],[address] [place] [address] Basophils/100 WBC (Bld) 0.3 % Normal 0.0 - 2.0 [facility] Comment on above: Performed By: #### 2 16222 #### [facility],[address] [place] [address] CBC + DIFF Normal [facility] Comment on above: Result Comment: CBC- COMPLETE BLOOD COUNT Performed By: #### 2 36885 #### [facility],[address] [place] [address] 94207 EO # 0.20 x10EE3/UL Normal 0.00 - 0.50 [facility] Comment on above: Performed By: #### 2 82251 #### [facility],[address] [place] [address] 89563 Eosinophils/100 WBC (Bld) 2.7 % Normal 0.0 - 7.0 [facility] Comment on above: Performed By: #### 2 81754 #### [facility],[address] [place] [address] 81822 Erythrocyte distribution width (RBC) [Ratio] 13.9 % Normal 12.0 - 15.6 [facility] Comment on above: Performed By: #### 2 01709 #### [facility],[address] [place] [address] Hematocrit (Bld) [Volume fraction] 39.4 % Low 40.0 - 52.0 [facility] Comment on above: Performed By: #### 2 82851 #### [facility],[address] [place] [address] Hemoglobin (Bld) [Mass/Vol] 13.1 g/dL Normal 13.0 - 17.5 [facility] Comment on above: Performed By: #### 2 35457 #### [facility],[address] [place] [address] 05125 Lymph # 0.97 x10EE3/UL Normal 0.80 - 2.80 [facility] Comment on above: Performed By: #### 2 85424 #### [facility],[address] [place] [address] 99215 Lymphocytes/100 WBC (Bld) 13.2 % Low 20.0 - 45.0 [facility] Comment on above: Performed By: #### 2 80181 #### [facility],[address] [place] [address] 81141 MANUAL DIFF N/A Normal [facility] Comment on above: Performed By: #### 2 34957 #### [facility],[address] [place] [address] 05002 MCH (RBC) [Entitic mass] 31 pg Normal 27 - 33 [facility] Comment on above: Performed By: #### 2 60553 #### [facility],[address] [place] [address] 71183 MCHC 33 X10 3 Normal 32 - 36 [facility] Comment on above: Performed By: #### 2 60475 #### [facility],[address] [place] [address] 68420 MCV (RBC) [Entitic vol] 93 fL Normal 81 - 98 [facility] Comment on above: Performed By: #### 2 42564 #### [facility],[address] [place] [address] 80825 Tift # 0.52 x10EE3/UL Normal 0.20 - 1.00 [facility] Comment on above: Performed By: #### 2 15928 #### [facility],[address] [place] [address] 89186 MONOS % 7.1 % Normal 0.0 - 10.0 [facility] Comment on above: Performed By: #### 2 60495 #### [facility],[address] [place] [address] 29730 Morphology Frank (Bld) [Interp] N/A Normal [facility] Comment on above: Performed By: #### 2 29651 #### [facility],[address] [place] [address] 95191 Neut # 5.63 x10EE3/UL Normal 1.50 - 7.10 [facility] Comment on above: Performed By: #### 2 64838 #### [facility],[address] [place] [address] 72458 Neutrophils/100 WBC (Bld) 76.7 % High 46.0 - 76.0 [facility] Comment on above: Performed By: #### 2 90909 #### [facility],[address] [place] [address] 27412 PLATELET 165 x10EE3/UL Normal 150 - 450 [facility] Comment on above: Performed By: #### 2 82712 #### [facility],[address] [place] [address] 15732 Platelet mean volume (Bld) [Entitic vol] 8.9 fL Normal 6.4 - 10.5 [facility] Comment on above: Result Comment: AUTO MATED DIFFERENTIAL Performed By: #### 2 94970 #### [facility],[address] [place] [address] 74066 RBC 4.25 x 10EE6/UL Low 4.50 - 6.00 [facility] Comment on above: Performed By: #### 2 88130 #### [facility],[address] [place] [address] 88674 WBC 7.3 x 10EE3/UL Normal 4.5 - 10.8 [facility] Comment on above: Performed By: #### 2 78123 #### [facility],[address] [place], [place] [address] PTH-Intact SerPl-mCncon 06-30 Parathyrin.intact [Mass/Vol] 73 pg/mL High 15-65 [facility] Comment on above: Order Comment: Speci men Type: BLOOD SPECIMEN Ordering Facility: [facility] Address: [address] [place] [address] Performed By: #### 2 731-8 #### [facility] CLIA [id number] [address] [place] [address] [place] URIC ACIDon 07-13-2024 Urate [Mass/Vol] 5.0 mg/dL Normal 3.5 - 7.2 [facility] Comment on above: Performed By: #### 2 13958 #### [facility],[address] [place] [address] 46039 URINE CREATININE AND PROTEIN RATIOon 07-13-2024 CREATININE UR 89.33 mg/dl Normal [facility] Comment on above: Performed By: #### 2 87276 #### [facility],[address] [place] [address] 93540 PC RATIO 1.62 mg/dL Normal 0.00 - 10.00 [facility] Comment on above: Performed By: #### 2 01771 #### [facility],[address] [place] [address] 44126 Protein (U) [Mass/Vol] 145.00 mg/dL High 0.00 - 10.00 [facility] Comment on above: Performed By: #### 2 14074 #### [facility],[address] [place] [address] 24934 VITAMIN D, 25 HYDROXYon 06-30 VitD 24.20 ng/mL Low 30.00 - 100 [facility] Comment on above: Result Comment: 25-O HD3 indicates both endogenous production and supplementation. 25-OHD2 is an indicator of exogenous sources, such as diet or supplementation. Therapy is based on measurement of Total 25-OHD, with levels <20 ng/mL indicative of Vitamin D deficiency, while levels between 20 ng/mL and 30 ng/mL suggest insufficiency. Optimal levels are >=30ng/mL. Vitamin D, 25-OH D3 Not Established Vitamin D, 25-OH D2 Not Established Performed By: #### 2 31296 #### [facility],[address] [place] [address] 03402 Hemoglobin A1con 08-07-2021 Glucose [Mass/Vol] 154 mg/dL Normal [facility] Comment on above: Performed By: #### H NEO1C #### [facility] Routine Lab [address] [place], [place] [address] HbA1c (Bld) [Mass fraction] 7.0 % High 4.3-5.6 [facility] Comment on above: Performed By: #### H BA1C #### [facility] [facility] [address] [place], [place] [address] Hemoglobin A1con 01-25-2021 Glucose [Mass/Vol] 151 mg/dL [facility] Comment on above: Performed By: #### H NEO1C #### [facility] Routine Lab [address] [place], [place] [address] HbA1c (Bld) [Mass fraction] 6.9 % High 4.3-5.6 [facility] Comment on above: Performed By: #### H BA1C #### [facility] Routine Lab [address] [place], [place] [address] Vital Signs Date Time Vital Sign Value Performing Clinician Faci junior 06-27-2025 13:37-0400 Body height 167.[address] Abhijit Bales MD Work Phone: [facility] 06-27-2025 13:37-0400 Body mass index (BMI) [Ratio] 26.3 kg/m2 Dr. Abhijit Bales MD Work Phone: [facility] 06-27-2025 13:37-0400 Body weight 73.[address] Abhijit Bales MD Work Phone: [facility] 06-27-2025 13:37-0400 Diastolic blood pressure 61 mm[Hg] Dr. Abhijit Bales MD Work Phone: [facility] 06-27-2025 13:37-0400 Heart rate 51 /min Dr. Abhijit Bales MD Work Phone: [facility] 06-27-2025 13:37-0400 Respiratory rate 16 /min Dr. Abhijit Bales MD Work Phone: [facility] 06-27-2025 13:37-0400 Systolic blood pressure 137 mm[Hg] Dr. Abhijit Bales MD Work Phone: [facility] 05-06-2023 10:56-0400 Body height 167.[address] Abhijit Bales Work Phone: [facility] 05-06-2023 10:56-0400 Body mass index (BMI) [Ratio] 27.9 kg/m2 Dr. Abhijit Bales Work Phone: [facility] 05-06-2023 10:56-0400 Body weight 78.[address] Abhijit Bales Work Phone: [facility] 05-06-2023 10:56-0400 Diastolic blood pressure 73 mm[Hg] Dr. Abhijit Bales Work Phone: [facility] 05-06-2023 10:56-0400 Heart rate 56 /min Dr. Abhijit Bales Work Phone: [facility] 05-06-2023 10:56-0400 Respiratory rate 18 /min Dr. Abhijit Bales Work Phone: [facility] 05-06-2023 10:56-0400 SaO2% (BldA) [Mass fraction] 99 % Dr. Abhijit Bales Work Phone: [facility] 05-06-2023 10:56-0400 Systolic blood pressure 129 mm[Hg] Dr. Abhijit Bales Work Phone: [facility] 05-06-2022 13:37-0400 Diastolic blood pressure 70 mm[Hg] Dr. David Kennedy Work Phone: [facility] Work Phone: 05-06-2022 13:37-0400 Systolic blood pressure 146 mm[Hg] Dr. David Kennedy Work Phone: [facility] Work Phone: 05-06-2022 09:29-0400 Body height 167.[address] David Kennedy Work Phone: [facility] Work Phone: 05-06-2022 09:29-0400 Body weight 85.[address] David Kennedy Work Phone: [facility] Work Phone: 05-06-2022 09:29-0400 Heart rate 58 /min Dr. David Kennedy Work Phone: [facility] Work Phone: 05-06-2022 09:29-0400 Respiratory rate 16 /min Dr. David Kennedy Work Phone: [facility] Work Phone: 05-06-2022 09:29-0400 SaO2% (BldA) [Mass fraction] 99 % Dr. David Kennedy Work Phone: [facility] Work Phone: 05-07-2021 12:57-0400 Body mass index (BMI) [Ratio] 30.4 kg/m2 Dr. David Kennedy Work Phone: [facility] Work Phone: Encounters Encounter Date Encounter Type Care Provider Facility Start: 07-19-2025 ambulatory David Kennedy Facility:[facility] Start: 06-28-2025 ambulatory DAVID KENNEDY [facility] Start: 06-27-2025 End: 06-27-[address] David Kennedy MD -[facility] Work Phone: Start: 06-27-2025 End: 06-27-[address] Abhijit Bales MD Work Phone: -[facility] Start: 04-12-2025 End: 04-12-2025 ambulatory AVIS DARLING [facility] Start: 03-15-2025 End: 03-15-2025 ambulatory ABHIJIT DARLING [facility] Start: 12-07-2024 End: 12-07-2024 ambulatory ABHIJIT DARLING [facility] Start: 09-14-2024 End: 09-14-2024 ambulatory ABHIJIT DARLING [facility] Start: 07-13-2024 End: 07-13-2024 ambulatory AVIS DARLING [facility] Start: 05-13-2023 End: 05-13-[address] Abhijit Bales Work Phone: [facility] Work Phone: Start: 05-13-2023 End: 05-13-[address] Abhijit Bales Work Phone: [facility]Pulmonary Services/Neurology Start: 05-06-2023 End: 05-06-[address] Abhijit Bales Work Phone: [facility] Start: 06-11-2022 Non-patient / Non-visit Dr. David Kennedy Work Phone: [facility] Start: 06-11-2022 End: 06-11-[address] David Kennedy Work Phone: [facility]Cardi[facility] Start: 05-27-2022 Non-patient / Non-visit Dr. David Kennedy Work Phone: [facility] Start: 05-27-2022 End: 05-27-[address] David Kennedy Work Phone: [facility] Start: 05-06-2022 End: 05-06-[address] David Kennedy Work Phone: [facility] Procedures Date Procedure Procedure Detail Performing Clinician Start: 12-07-2024 Urinalysis DAVIDArtur NGUYEN I Comment on above: Result Comment: URIN ALYSIS Performed By: #### [id number] #### [facility],[address] [place] [address] Start: 09-14-2024 Urinalysis DAVID WENDY I Comment on above: Result Comment: URIN ALYSIS Performed By: #### [id number] #### [facility],[address] [place] [address] Start: 07-13-2022 Cardiovascular stres s test using pharmacologic stress agent Dr. Hernandez Marcia Work Phone: Payers Date Payer Category Payer Self-pay [id number] 2024 Medicare [id number] [id number] Private Health Insurance [id number] 1945 Unknown [id number] 2.16.8 [id number] 1945 Unknown [id number] 2.16.8 [id number] 1945 Unknown [id number] 2.16.8 [id number] 1945 Unknown [id number] 2.16.8 [id number] 1945 Unknown [id number] 2.16.8 [id number] 1945 Unknown [id number] 2.16.8 [id number] Unknown [id number] Unknown [id number] Unknown [id number] 2.16.8 [id number] Unknown [id number] 2.16.8 [id number] Social History Date Type Detail Facility Start: 05-06-2022 End: 05-06-2023 Tobacco smoking status NHIS Unknown if ever smoked [facility] Start: 1945 Sex Assigned At Male W [facility] Start: 05-06-2023 Tobacco smoking stat us NHIS Ex-smoker (finding) [facility] Evaluation note Note Date & Type Note Facility Evaluation note Diagnosis Onset Date Atherosclerosis of coronary artery of red devil heart without angina pectoris chronic Bilateral carotid artery stenosis chronic Essential (primary) hypertension chronic Hyperlipidemia [facility] Work Phone: Evaluation note Note Date & Type Note Facility Evaluation note Diagnosis Onset Date Ectopic beats acute Atherosclerosis of coronary artery of red devil heart without angina pectoris chronic Bilateral carotid artery stenosis chronic Essential (primary) hypertension chronic Hyperlipidemia [facility] Work Phone: Evaluation note Note Date & Type Note Facility Evaluation note No assessment information availa ble [facility] Work Phone: Reason for referral (narrative) Note Date & Type Note Facility Reason for referral (narrative) No reason for referral information available [facility] Work Phone: Summary Purpose Family History No Family History Records Found Relationship Condition Age at Onset Recorded Date/T jayme father Coronary artery disease Unknown brother Coronary artery disease Unknown sister Malignant neoplasm Unknown Advance Directives No Advanced Directives Records FoundNo Advanced Directives Records FoundNo Advanced Directives Records FoundNo Advanced Directives Records Found Chief Complaint and Reason for Visit Chief Complaint 1 y fu CAROTID STENOSIS CAD ASHD CAD ASHD Reason for Visit Atherosclerosis of c oronary artery of red devil heart without angina pectoris Bilateral carotid artery stenosis Essential (primary) hypertension Hyperlipidemia Chief Complaint 1 Y FU ECTOPIC BEATS Reason for Visit Ectopic beats Atherosclerosis of coronary artery of red devil heart without angina pectoris Bilateral carotid artery stenosis Essential (primary) hypertension Hyperlipidemia Chief Complaint Admit Date 1 y fu w [employer] per PT REQ June 27, 2025 1:37pm Additional Source Comments (unrecognized sect ion and content) No Status Records FoundNo Status Records FoundNo Status Records FoundNo Status Records Found INFORMATION SOURCE (unrecogn ized section and content) DATE CREATED AUTHOR 08/08/2021 [facility] DATE CREATED AUTHOR AUTHOR'S ORGANIZ ATION 2025 [facility] DATE CREATED AUTHOR AUTHOR'S ORGANIZ ATION 06/30/2025 [facility] DATE CREATED AUTHOR AUTHOR'S ORGANIZ ATION 07/18/2025 [facility] Goals (unrecognized section and content) Goals may be documented in a n alternate sectionGoals may be documented in an alternate sectionGoals may be documented in an alternate section Care Teams (unrecognized sec tion and content) Team Status: Active Member Role Status Dates Dr. Abhijit Bales MD Family Provider Active Dr. Abhijit Bales MD Primary Care Provider Active Team Status: Inactive Member Role Status Dates Dr. Abhijit Bales MD Primary Care Provider, Referring Provider Active Suzanne JACOBS PA Attending Provider Active Team Status: Inactive Member Role Status Dates Dr. Ahbijit Bales MD Primary Care Provider Active ARLENE Jernigan Attending Provider, Referr ing Provider Active Team Status: Active Member Role/Relationship Status Dates Dr. Abhijit Bales MD Family Provider Active Dr. Abhijit Bales MD Primary Care Provider Active Team Status: Inactive Member Role/Relationship Status Dates Dr. Abhijit Bales MD Primary Care Provider Active Start: June 27, 2025 End: June 27, 2025 Dr. Abhijit Bales MD Referring Provider Active Start: June 27, 2025 End: June 27, 2025 Dr. David Kennedy MD Attending Provider Active S tart: June 27, 2025 End: June 27, 2025 FOR RECORDS PERTAINING TO PATIENTS WHO ARE OR HAVE BEEN ENROLLED IN A CHEMICAL DEPENDENCY/SUBSTANCEABUSE PROGRAM, SOME INFORMATION MAY BE OMITTED. This clinical summary was aggregated from multiple sources. Caution should be exercised in using it in the provision of clinical care. This summary normalizes information from multiple sources, and as a consequence, information in this document may materially change the coding, format and clinical context of patient data. In addition, data may be omitted in some cases. CLINICAL DECISIONS SHOULD BE BASED ON THE PRIMARY CLINICAL RECORDS. [facility] [employer], [facility]. provides no warranty or guarantee of the accuracy or completeness of information in this document.
== END | disposition home or self-care (01) ==
LOC: CVS 08:52
PROVIDERS: PCP Internal Medicine Infectious Disease; Referring Provider Internal Medicine Cardiovascular Disease; Visit Provider Internal Medicine Cardiovascular Disease
DX: I35.0 Nonrheumatic aortic (valve) stenosis (principal)
CPT/HCPCS: 93306